=== PATIENT | female | born 1940 | race Caucasian/White ===

== ENCOUNTER 2019-06-28 07:31 | Day surgery (SDC) | payer MEDICARE, BC ==
[2019-06-28] MEDS ORDERED: Sodium Chloride 0.9% 10 ML Syringe FLUSH PRN (08:00)
[2019-06-28 09:36] VITALS: BP 134/73; PULSE 82
--- NOTE | 2019-06-28 14:34 | OR ---
DATE OF PROCEDURE: 06/28/2019 SURGEON: Caren Scruggs MD POSTOPERATIVE CARE: Postoperative care will be provided mainly at the [address] [place] [address] [facility] in conjunction with [facility] / [facility]. PREOPERATIVE DIAGNOSIS: Cataract, left eye. POSTOPERATIVE DIAGNOSIS: Cataract, left eye. PROCEDURE: Phacoemulsification with intraocular lens placement, left eye. ANESTHESIA: Topical and intracameral. ESTIMATED BLOOD LOSS: Minimal. COMPLICATIONS: None. PATHOLOGY SPECIMENS: None. SURGICAL FINDINGS: None. INDICATION FOR PROCEDURE: The patient is a 79-year-old female with history of a visually significant cataract in the left eye, which interfered with activities of daily living. This consisted of a nuclear sclerosis cataract. Following careful discussion of the risks, benefits and alternatives to cataract extraction with intraocular lens placement including blindness and , the patient elected to proceed, and informed, written consent was obtained prior to the procedure. DESCRIPTION OF THE PROCEDURE: The patient was previously identified, and a amadeo placed above the left eye. All sources, including the patient, indicated that the left eye was the correct eye. The patient was subsequently taken to the operating room where standard monitors were applied. The patient was then prepped and draped in the usual sterile fashion for ophthalmic surgery. Attention was first directed at the 12 o'clock position where a paracentesis port was fashioned. Shugar solution followed by Viscoat was instilled into the eye. Attention was then directed to the 8:30 position where a triplanar incision was made in a near-clear manner using a keratome. A continuous capsulorrhexis was then made using a combination of the cystotome and Utrata forceps. Hydrodissection was achieved using a balanced salt solution, and the lens rotated nicely. Phacoemulsification was then done using a modified [id number] technique without complication. Phaco time was 8.20 CDE. The remaining cortex was removed using the irrigation/aspiration handpiece. Provisc was then instilled into the eye. A Technis lens, model [id number], at 22.0 diopters was then placed in the capsular bag using an Anton Ruiz injector. The remaining viscoelastic was removed using the irrigation/aspiration forceps. All wounds were then checked and found to be watertight. The lid speculum and drapes were removed. Maxitrol ointment was placed in the patient's left eye, and the eye was shielded. The patient tolerated the procedure well. The patient was instructed to follow up tomorrow. All needle and sponge counts were correct at the end of the procedure. Caren Scruggs MD /[id number]
== END 2019-06-28 09:43 | disposition home or self-care (01) ==
LOC: JP.SDS 07:31
PROVIDERS: ATTEND Ophthalmology
DX: E11.36 Type 2 diabetes mellitus with diabetic cataract (principal); H25.12 Age-related nuclear cataract, left eye; I10 Essential (primary) hypertension; E78.5 Hyperlipidemia, unspecified; E03.9 Hypothyroidism, unspecified; K21.9 Gastro-esophageal reflux disease without esophagitis; Z88.2 Allergy status to sulfonamides; Z86.718 Personal history of other venous thrombosis and embolism
CPT/HCPCS: 66984; V2632

== ENCOUNTER 2021-04-04 14:16 | Emergency (ER) | payer MEDICARE, BC ==
[2021-04-04] MEDS ORDERED: Ondansetron 4 MG Tab.DIS PO ONE (15:18)
--- NOTE | 2021-04-04 15:24 | EDM.PDOC ---
ED HPI GENERAL MEDICAL PROBLEM - General Chief Complaint: General Stated Complaint: UNSTEADY AND TIRED Time Seen by Provider: 04/04/21 15:05 Source of Information: Reports: Patient, Old Records, RN History Limitations: Reports: No Limitations - History of Present Illness INITIAL COMMENTS - FREE TEXT/NARRATIVE: 81 yo female presents with fatigue with exertion, mild nausea without vomiting, and slightly loose stools. No SOB. No fever. Sees Dr. Armenta and did see him for the above plus a chronic RUGGIERO. There was discussion about getting an outpatient head CT scan, but nothing else. Today Ema decided to go back to the clinic and when she arrived the clinic was closed so she came to the ER. Onset: Gradual Duration: Day(s):, Constant Location: Reports: Generalized Quality: Reports: Ache (mild, chronic RUGGIERO) Severity: Mild Improves with: Reports: None Worsens with: Reports: None Context: Reports: Other (See HPI) Associated Symptoms: Reports: Headaches, Malaise, Nausea/Vomiting (no vomiting), Other (fatigue with exertion more than usual). 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) Headache Pain Score (Numeric/FACES): 4 - Related Data Allergies Allergy/AdvReac Type Severity Reaction Status Date / Time Sulfa (Sulfonamide Allergy Rash Verified 07/09/19 12:41 Antibiotics) Home Meds: Home Meds Gabapentin 600 mg PO BID 06/23/15 [History] Levothyroxine [Sythroid] 112 mcg PO DAILY 06/23/15 [History] Losartan Potassium [Cozaar] 100 mg PO DAILY 06/23/15 [History] Simvastatin 20 mg PO BEDTIME 06/23/15 [History] Verapamil HCl [Verapamil ER] 240 mg PO DAILY 06/23/15 [History] glipiZIDE [Glipizide] 10 mg PO BID 06/23/15 [History] Acetaminophen [Tylenol Extra Strength] 500 - 1,000 mg PO Q4HR PRN 07/06/15 [History] Cyanocobalamin (Vitamin B-12) [Cyanocobalamin Injection] 1,000 mcg IJ .MONTHLY 07/25/15 [History] Multivitamin [Daily Yoly] 1 tab PO DAILY 07/25/15 [History] Citalopram [Citalopram HBr] 20 mg PO DAILY 06/25/19 [History] LORazepam [Ativan] 0.5 mg PO TID PRN 06/25/19 [History] atorvaSTATin [Lipitor] 10 mg PO BEDTIME 06/25/19 [History] cephALEXin [Cephalexin] 500 mg PO TID #14 tablet 04/04/21 [Rx] Past Medical History HEENT 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: Cataract, Epistaxis, Impaired Vision Cardiovascular 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: Blood Clots/VTE/DVT, Hypertension, Other (See Below) Other Cardiovascular History: rhuematic fever hx, murmer at times Respiratory 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: PE Gastrointestinal 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: GERD, Other (See Below) Other Gastrointestinal History: occasional diarrhea- once every 3 months, had colitis years ago Genitourinary 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: None 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, Musculoskeletal 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: Arthritis Neurological 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: Migraines Psychiatric 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: Anxiety Endocrine/Metabolic 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: Diabetes, Type II Hematologic 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: B12 Deficiency, Blood Transfusion(s) - Infectious Disease History Infectious Disease 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: Chicken Pox, Measles, Mumps - Past Surgical History HEENT Surgical 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: Tonsillectomy Cardiovascular Surgical 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: None Respiratory Surgical 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: Other (See Below) Other Respiratory Surgeries/Procedures: removal of blood clot GI Surgical 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: Appendectomy, Colonoscopy, EGD Female Surgical 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: Breast Biopsy, Hysterectomy Endocrine Surgical 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: None Neurological Surgical 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: Lumbar Spine Musculoskeletal Surgical 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: Other (See Below) Other Musculoskeletal Surgeries/Procedures:: back sugery July 2015, spacer put in Social & Family History - Tobacco Use Tobacco Use Status *Q: Never Tobacco User - Caffeine Use Caffeine Use: Reports: Coffee ED ROS GENERAL - Review of Systems Review Of Systems: See Below Constitutional: Reports: No Symptoms HEENT: Reports: No Symptoms Respiratory: Reports: No Symptoms Cardiovascular: Reports: No Symptoms GI/Abdominal: Reports: Nausea. Denies: Vomiting : Reports: No Symptoms Musculoskeletal: Reports: No Symptoms Skin: Reports: No Symptoms Neurological: Reports: Headache ED EXAM, GENERAL - Physical Exam Exam: See Below Exam Limited By: No Limitations General Appearance: Alert, WD/WN, No Apparent Distress Eye Exam: Bilateral Eye: Normal Inspection Ears: Normal External Exam, Normal Canal, Hearing Loss Ear Exam: Bilateral Ear: Auricle Normal, Canal Normal Nose: Normal Inspection, No Blood Throat/Mouth: Normal Inspection, Normal Lips, Normal Oropharynx, Normal Voice, No Airway Compromise Head: Atraumatic, Normocephalic Neck: Normal Inspection Respiratory/Chest: No Respiratory Distress, Lungs Clear, Normal Breath Sounds, No Accessory Muscle Use Cardiovascular: Regular Rate, Rhythm, No Edema GI/Abdominal: Normal Bowel Sounds, Soft, Non-Tender, No Distention Back Exam: No: CVA Tenderness (R), CVA Tenderness (L) Extremities: Normal Inspection, Normal Range of Motion, Non-Tender, No Pedal Edema Neurological: Alert, Oriented, CN II-XII Intact, Normal Cognition, No Motor/Sensory Deficits Psychiatric: Normal Affect, Normal Mood Skin Exam: Warm, Dry, Intact, Normal Color, No Rash Course - Vital Signs Last Recorded V/S: Last Vital Signs Temp 36.2 C 04/04/21 15:01 Pulse 91 04/04/21 16:09 Resp 13 04/04/21 16:09 BP 125/73 04/04/21 16:09 Pulse Ox 90 L 04/04/21 16:09 - Orders/Labs/Meds Orders: Active Orders 24 hr Category Date Time Status Abdomen 1V Flat [CR] Stat Exams 04/04/21 15:24 Ordered CULTURE URINE [RM] Stat Lab 04/04/21 16:31 Received Lactated Ringers [Ringers, Lactated] 1,000 ml Med 04/04/21 15:52 Active IV BOLUS Medication Orders Lactated Ringer's (Ringers, Lactated) 1,000 mls @ 1,000 mls/hr IV BOLUS ONE Stop: 04/04/21 16:51 Last Admin: 04/04/21 16:02 Dose: 1,000 mls/hr Documented by: DARCY Labs: Laboratory Tests 04/04/21 04/04/21 04/04/21 Range/Units 15:26 15:26 15:26 WBC 7.5 (4.5-11.0) K/uL RBC 4.44 (3.30-5.50) M/uL Hgb 13.7 (12.0-15.0) g/dL Hct 41.2 (36.0-48.0) % MCV 93 (80-98) fL MCH 31 (27-31) pg MCHC 33 (32-36) % Plt Count 290 (150-400) K/uL Sodium 139 L (140-148) mmol/L Potassium 4.8 (3.6-5.2) mmol/L Chloride 103 (100-108) mmol/L Carbon Dioxide 24 (21-32) mmol/L Anion Gap 16.8 H (5.0-14.0) mmol/L BUN 21 H (7-18) mg/dL Creatinine 1.1 H (0.6-1.0) mg/dL Est Cr Clr Drug Dosing 37.55 mL/min Estimated GFR (MDRD) 48 L (>60) Glucose 229 H (74-106) mg/dL Calcium 9.5 (8.5-10.1) mg/dL Troponin I < 0.017 (0.000-0.056) ng/mL TSH, Ultra Sensitive 1.501 (0.358-3.740) uIU/mL Urine Color (YELLOW) Urine Appearance (CLEAR) Urine pH (5.0-8.0) Ur Specific [place] (1.008-1.030) Urine Protein (NEGATIVE) mg/dL Urine Glucose (UA) (NEGATIVE) mg/dL Urine Ketones (NEGATIVE) mg/dL Urine Occult Blood (NEGATIVE) Urine Nitrite (NEGATIVE) Urine Bilirubin (NEGATIVE) Urine Urobilinogen (0.2-1.0) EU/dL Ur Leukocyte Esterase (NEGATIVE) Urine RBC (0-5) Urine WBC (0-5) Ur Epithelial Cells Amorphous Sediment Urine Bacteria Urine Mucus 04/04/21 Range/Units 16:00 WBC (4.5-11.0) K/uL RBC (3.30-5.50) M/uL Hgb (12.0-15.0) g/dL Hct (36.0-48.0) % MCV (80-98) fL MCH (27-31) pg MCHC (32-36) % Plt Count (150-400) K/uL Sodium (140-148) mmol/L Potassium (3.6-5.2) mmol/L Chloride (100-108) mmol/L Carbon Dioxide (21-32) mmol/L Anion Gap (5.0-14.0) mmol/L BUN (7-18) mg/dL Creatinine (0.6-1.0) mg/dL Est Cr Clr Drug Dosing mL/min Estimated GFR (MDRD) (>60) Glucose (74-106) mg/dL Calcium (8.5-10.1) mg/dL Troponin I (0.000-0.056) ng/mL TSH, Ultra Sensitive (0.358-3.740) uIU/mL Urine Color Yellow (YELLOW) Urine Appearance Cloudy A (CLEAR) Urine pH 5.0 (5.0-8.0) Ur Specific [place] >= 1.030 (1.008-1.030) Urine Protein Trace H (NEGATIVE) mg/dL Urine Glucose (UA) Negative (NEGATIVE) mg/dL Urine Ketones Negative (NEGATIVE) mg/dL Urine Occult Blood Negative (NEGATIVE) Urine Nitrite Positive H (NEGATIVE) Urine Bilirubin Negative (NEGATIVE) Urine Urobilinogen 0.2 (0.2-1.0) EU/dL Ur Leukocyte Esterase Small H (NEGATIVE) Urine RBC 0-5 (0-5) Urine WBC Packed H (0-5) Ur Epithelial Cells Rare Amorphous Sediment Not seen Urine Bacteria Many Urine Mucus Not seen Meds: Medications Generic Name Dose Route Start Last Admin Trade Name Freq PRN Reason Stop Dose Admin Lactated Ringer's 1,000 mls @ 1,000 mls/hr 04/04/21 15:52 04/04/21 16:02 Ringers, Lactated IV 04/04/21 16:51 1,000 mls/hr BOLUS ONE Administration Discontinued Medications Generic Name Dose Route Start Last Admin Trade Name Freq PRN Reason Stop Dose Admin Cephalexin 500 mg 04/04/21 16:29 Cephalexin 250 Mg Cap PO 04/04/21 16:30 ONETIME ONE Ondansetron HCl 4 mg 04/04/21 15:18 04/04/21 15:31 Ondansetron 4 Mg Tab.Dis PO 04/04/21 15:19 4 mg ONETIME ONE Administration - Radiology Interpretation Free Text/Narrative:: abdomen single view X-ray- Departure - Departure Time of Disposition: 17:00 Disposition: Home, Self-Care 01 Condition: Fair Clinical Impression: Mild dehydration, Cystitis - Discharge Information *PRESCRIPTION DRUG MONITORING PROGRAM REVIEWED*: No *COPY OF PRESCRIPTION DRUG MONITORING REPORT IN PATIENT [place]: No Prescriptions: cephALEXin [Cephalexin] 500 mg PO TID #14 tablet Referrals: Michael Armenta MD [Primary Care Provider] - Forms: ED Department Discharge Additional Instructions: Take cephalexin every 8 hrs as directed. Drink more fluids. F/U with Dr. Armenta in 3 days to review your urine culture results. Return as needed. Sepsis Event Note (ED) - Evaluation Sepsis Screening Result: No Definite Risk - Focused Exam Vital Signs: Vital Signs Temp Pulse Resp BP Pulse Ox 04/04/21 16:09 91 13 125/73 90 L 04/04/21 15:01 36.2 C 105 H 15 136/76 94 L - My Orders Last 24 Hours: My Active Orders 04/04/21 15:24 Abdomen 1V Flat [CR] Stat 04/04/21 15:52 Lactated Ringers [Ringers, Lactated] 1,000 ml IV BOLUS 04/04/21 16:31 CULTURE URINE [RM] Stat - Assessment/Plan Last 24 Hours: My Active Orders 04/04/21 15:24 Abdomen 1V Flat [CR] Stat 04/04/21 15:52 Lactated Ringers [Ringers, Lactated] 1,000 ml IV BOLUS 04/04/21 16:31 CULTURE URINE [RM] Stat
[2021-04-04] MEDS ORDERED: Lactated Ringers 1,000 ML IV ONE (15:52)
[2021-04-04] MEDS ORDERED: Cephalexin 250 MG Cap PO ONE (16:29)
[2021-04-04 16:54] VITALS: BP 136/73; PULSE 89
== END 2021-04-04 17:07 | disposition home or self-care (01) ==
LOC: JP.ED 14:16
DX: N30.90 Cystitis, unspecified without hematuria (principal); E86.0 Dehydration; I10 Essential (primary) hypertension; E11.9 Type 2 diabetes mellitus without complications; Z79.899 Other long term (current) drug therapy; Z88.2 Allergy status to sulfonamides
CPT/HCPCS: 36415; 80048; 81001; 84443; 84484; 85027; 87086; 87088; 87186; 99283; A9270; J7120

== ENCOUNTER 2021-04-09 09:16 | Emergency (ER) | payer MEDICARE, BC ==
--- NOTE | 2021-04-09 10:04 | EDM.PDOC ---
ED HPI GENERAL MEDICAL PROBLEM - General Chief Complaint: General Stated Complaint: unbalanced , fatigue Time Seen by Provider: 04/09/21 10:03 Source of Information: Reports: Patient History Limitations: Reports: No Limitations - History of Present Illness INITIAL COMMENTS - FREE TEXT/NARRATIVE: pt arrived with a history of feeling like she is going to pass out when she stands up. She had a ct svan of the head ordered by Dr Armenta which was neg. She has a low grade headache relievieved by tylenol. Onset: Gradual Duration: Day(s): Location: Reports: Generalized, Other (pt feels like she is going to pass out when she stands up) Associated Symptoms: Reports: Weakness, Other ( dizziness) Head Pain Score (Numeric/FACES): 8 - Related Data Allergies Allergy/AdvReac Type Severity Reaction Status Date / Time Sulfa (Sulfonamide Allergy Rash Verified 04/09/21 09:44 Antibiotics) Home Meds: Home Meds Levothyroxine [Sythroid] 112 mcg PO DAILY 06/23/15 [History] Losartan Potassium [Cozaar] 100 mg PO DAILY 06/23/15 [History] Verapamil HCl [Verapamil ER] 240 mg PO DAILY 06/23/15 [History] glipiZIDE [Glipizide] 10 mg PO BID 06/23/15 [History] Acetaminophen [Tylenol Extra Strength] 500 - 1,000 mg PO Q4HR PRN 07/06/15 [History] Cyanocobalamin (Vitamin B-12) [Cyanocobalamin Injection] 1,000 mcg IJ .MONTHLY 07/25/15 [History] Multivitamin [Daily Yoly] 1 tab PO DAILY 07/25/15 [History] LORazepam [Ativan] 0.5 mg PO TID PRN 06/25/19 [History] atorvaSTATin [Lipitor] 10 mg PO BEDTIME 06/25/19 [History] Past Medical History HEENT 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: Cataract, Epistaxis, Impaired Vision Cardiovascular 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: Blood Clots/VTE/DVT, Hypertension, Other (See Below) Other Cardiovascular History: rhuematic fever hx, murmer at times Respiratory 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: PE Gastrointestinal 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: GERD, Other (See Below) Other Gastrointestinal History: occasional diarrhea- once every 3 months, had colitis years ago Genitourinary 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: None 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, Musculoskeletal 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: Arthritis Neurological 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: Migraines Psychiatric 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: Anxiety Endocrine/Metabolic 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: Diabetes, Type II Hematologic 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: B12 Deficiency, Blood Transfusion(s) - Infectious Disease History Infectious Disease 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: Chicken Pox, Measles, Mumps - Past Surgical History HEENT Surgical 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: Tonsillectomy Cardiovascular Surgical 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: None Respiratory Surgical 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: Other (See Below) Other Respiratory Surgeries/Procedures: removal of blood clot GI Surgical 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: Appendectomy, Colonoscopy, EGD Female Surgical 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: Breast Biopsy, Hysterectomy Endocrine Surgical 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: None Neurological Surgical 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: Lumbar Spine Musculoskeletal Surgical 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: Other (See Below) Other Musculoskeletal Surgeries/Procedures:: back sugery July 2015, spacer put in Social & Family History - Tobacco Use Tobacco Use Status *Q: Never Tobacco User Second Hand Smoke Exposure: No - Caffeine Use Caffeine Use: Reports: None - Recreational Drug Use Recreational Drug Use: No ED ROS GENERAL - Review of Systems Review Of Systems: See Below Constitutional: Reports: Weakness HEENT: Reports: No Symptoms Respiratory: Reports: No Symptoms Cardiovascular: Reports: Other (pt feels like her heart races at times. ) Endocrine: Reports: No Symptoms GI/Abdominal: Reports: No Symptoms : Reports: No Symptoms Musculoskeletal: Reports: No Symptoms Skin: Reports: No Symptoms ED EXAM, GENERAL - Physical Exam Exam: See Below Free Text/Narrative:: pt gfeels like she is going to pass out when she stands up. Her heart does race at times. She has not had chest pain. Exam Limited By: No Limitations General Appearance: Alert, Anxious, Mild Distress, Other (pupils are equal and reactive. ) Ears: Normal TMs Nose: Normal Inspection Throat/Mouth: Normal Inspection Head: Atraumatic Neck: Normal Inspection Respiratory/Chest: No Respiratory Distress Cardiovascular: Regular Rate, Rhythm, Tachycardia, Other (pt has a rate that is 90) GI/Abdominal: Soft, No Mass (Female) Exam: Deferred Rectal (Female) Exam: Deferred Back Exam: Normal Inspection Extremities: Normal Inspection Neurological: Alert, Oriented, Normal Cognition Psychiatric: Anxious #1 Interpretation Rhythm: NSR EKG Interpretation Comments: pt was tachy in the 90s she has poor r progression anteriorly Course - Vital Signs Last Recorded V/S: Last Vital Signs Temp 36.6 C 04/09/21 09:56 Pulse 95 04/09/21 12:48 Resp 16 04/09/21 12:48 BP 149/80 H 04/09/21 12:48 Pulse Ox 94 L 04/09/21 12:48 Orthostatic Blood Pressure [ 90/53 Standing] Orthostatic Blood Pressure [ 115/68 Sitting] Orthostatic Blood Pressure [ 131/70 Supine] - Orders/Labs/Meds Orders: Active Orders 24 hr Category Date Time Status EKG Documentation Completion [RC] ASDIRECTED Care 04/09/21 10:54 Active Orthostatic Vital Signs [RC] ASDIRECTED Care 04/09/21 10:38 Active Sodium Chloride 0.9% [Normal Saline] 1,000 ml Med 04/09/21 11:00 Active IV ASDIRECTED EKG 12 Lead [EK] Routine Ther 04/09/21 10:54 Ordered Medication Orders Sodium Chloride (Normal Saline) 1,000 mls @ 999 mls/hr IV ASDIRECTED TOD Last Admin: 04/09/21 12:17 Dose: 999 mls/hr Documented by: KASSI Labs: Laboratory Tests 04/09/21 04/09/21 04/09/21 Range/Units 10:25 10:25 10:33 WBC 6.6 (4.5-11.0) K/uL RBC 4.49 (3.30-5.50) M/uL Hgb 13.5 (12.0-15.0) g/dL Hct 41.3 (36.0-48.0) % MCV 92 (80-98) fL MCH 30 (27-31) pg MCHC 33 (32-36) % Plt Count 285 (150-400) K/uL Neut % (Auto) 60.9 (36-66) % Lymph % (Auto) 25.0 (24-44) % [place] % (Auto) 10.1 H (2-6) % Eos % (Auto) 3.5 (2-4) % Baso % (Auto) 0.5 (0-1) % Sodium 136 L (140-148) mmol/L Potassium 4.7 (3.6-5.2) mmol/L Chloride 101 (100-108) mmol/L Carbon Dioxide 25 (21-32) mmol/L Anion Gap 14.7 H (5.0-14.0) mmol/L BUN 21 H (7-18) mg/dL Creatinine 1.2 H (0.6-1.0) mg/dL Est Cr Clr Drug Dosing 34.42 mL/min Estimated GFR (MDRD) 43 L (>60) Glucose 271 H (74-106) mg/dL Calcium 8.8 (8.5-10.1) mg/dL Total Bilirubin 0.5 (0.2-1.0) mg/dL AST 21 (15-37) U/L ALT 28 (12-78) U/L Alkaline Phosphatase 41 L (46-116) U/L Troponin I (0.000-0.056) ng/mL Total Protein 7.1 (6.4-8.2) g/dL Albumin 3.4 (3.4-5.0) g/dL Globulin 3.7 H (2.3-3.5) g/dL Albumin/Globulin Ratio 0.9 L (1.2-2.2) Urine Color Yellow (YELLOW) Urine Appearance Cloudy A (CLEAR) Urine pH 5.0 (5.0-8.0) Ur Specific [place] 1.020 (1.008-1.030) Urine Protein Trace H (NEGATIVE) mg/dL Urine Glucose (UA) Negative (NEGATIVE) mg/dL Urine Ketones Negative (NEGATIVE) mg/dL Urine Occult Blood Negative (NEGATIVE) Urine Nitrite Negative (NEGATIVE) Urine Bilirubin Negative (NEGATIVE) Urine Urobilinogen 0.2 (0.2-1.0) EU/dL Ur Leukocyte Esterase Negative (NEGATIVE) Urine RBC Not seen (0-5) Urine WBC 0-5 (0-5) Ur Epithelial Cells Moderate Amorphous Sediment Not seen Urine Bacteria Few Urine Mucus Few Urine Other 04/09/21 Range/Units 11:10 WBC (4.5-11.0) K/uL RBC (3.30-5.50) M/uL Hgb (12.0-15.0) g/dL Hct (36.0-48.0) % MCV (80-98) fL MCH (27-31) pg MCHC (32-36) % Plt Count (150-400) K/uL Neut % (Auto) (36-66) % Lymph % (Auto) (24-44) % [place] % (Auto) (2-6) % Eos % (Auto) (2-4) % Baso % (Auto) (0-1) % Sodium (140-148) mmol/L Potassium (3.6-5.2) mmol/L Chloride (100-108) mmol/L Carbon Dioxide (21-32) mmol/L Anion Gap (5.0-14.0) mmol/L BUN (7-18) mg/dL Creatinine (0.6-1.0) mg/dL Est Cr Clr Drug Dosing mL/min Estimated GFR (MDRD) (>60) Glucose (74-106) mg/dL Calcium (8.5-10.1) mg/dL Total Bilirubin (0.2-1.0) mg/dL AST (15-37) U/L ALT (12-78) U/L Alkaline Phosphatase (46-116) U/L Troponin I < 0.017 (0.000-0.056) ng/mL Total Protein (6.4-8.2) g/dL Albumin (3.4-5.0) g/dL Globulin (2.3-3.5) g/dL Albumin/Globulin Ratio (1.2-2.2) Urine Color (YELLOW) Urine Appearance (CLEAR) Urine pH (5.0-8.0) Ur Specific [place] (1.008-1.030) Urine Protein (NEGATIVE) mg/dL Urine Glucose (UA) (NEGATIVE) mg/dL Urine Ketones (NEGATIVE) mg/dL Urine Occult Blood (NEGATIVE) Urine Nitrite (NEGATIVE) Urine Bilirubin (NEGATIVE) Urine Urobilinogen (0.2-1.0) EU/dL Ur Leukocyte Esterase (NEGATIVE) Urine RBC (0-5) Urine WBC (0-5) Ur Epithelial Cells Amorphous Sediment Urine Bacteria Urine Mucus Urine Other Meds: Medications Generic Name Dose Route Start Last Admin Trade Name Freq PRN Reason Stop Dose Admin Sodium Chloride 1,000 mls @ 999 mls/hr 04/09/21 11:00 04/09/21 12:17 Normal Saline IV 999 mls/hr ASDIRECTED [facility] Administration - Re-Assessments/Exams Free Text/Narrative Re-Assessment/Exam: 04/09/21 12:58 orthostatics were done on the pt and she had a very sig drop in bp to 90 systolic. She did feel off balance. Her urine was rechecked and it did look clear. Pt was given fluid and her verapamil will be decreased. Her lab work looked good. She was mildly tachy in a sinus rhythm she did have a normal trop 04/09/21 13:01 Departure - Departure Time of Disposition: 12:48 Disposition: Home, Self-Care 01 Condition: Fair Clinical Impression: Dehydration, Postural hypotension - Discharge Information Instructions: Dehydration, Adult, [id number] Referrals: PCP,None [Primary Care Provider] - Forms: ED Department Discharge Care Plan Goals: push fluids, decrease verapamil to 1/tab daily, appt with Dr armenta in 3-4 day, Sepsis Event Note (ED) - Evaluation Sepsis Screening Result: No Definite Risk - Focused Exam Vital Signs: Vital Signs Temp Pulse Resp BP Pulse Ox 04/09/21 12:48 95 16 149/80 H 94 L 04/09/21 11:38 95 15 131/75 91 L 04/09/21 10:40 93 16 133/71 94 L 04/09/21 09:56 36.6 C 92 16 132/74 92 L 04/09/21 09:36 36.6 C 99 16 142/72 H 90 L - My Orders Last 24 Hours: My Active Orders 04/09/21 10:38 Orthostatic Vital Signs [RC] ASDIRECTED 04/09/21 10:54 EKG Documentation Completion [RC] ASDIRECTED EKG 12 Lead [EK] Routine 04/09/21 11:00 Sodium Chloride 0.9% [Normal Saline] 1,000 ml IV ASDIRECTED - Assessment/Plan Last 24 Hours: My Active Orders 04/09/21 10:38 Orthostatic Vital Signs [RC] ASDIRECTED 04/09/21 10:54 EKG Documentation Completion [RC] ASDIRECTED EKG 12 Lead [EK] Routine 04/09/21 11:00 Sodium Chloride 0.9% [Normal Saline] 1,000 ml IV ASDIRECTED
[2021-04-09] MEDS ORDERED: Sodium Chloride 0.9% 1,000 ML IV SCH (11:00)
[2021-04-09 12:13] VITALS: PULSE 95
[2021-04-09 12:49] VITALS: BP 149/80
== END 2021-04-09 13:16 | disposition home or self-care (01) ==
LOC: JP.ED 09:16
DX: I95.9 Hypotension, unspecified (principal); E86.0 Dehydration; I10 Essential (primary) hypertension; E11.9 Type 2 diabetes mellitus without complications; Z79.899 Other long term (current) drug therapy; Z88.2 Allergy status to sulfonamides; R51.9 Headache, unspecified; G89.29 Other chronic pain; G31.9 Degenerative disease of nervous system, unspecified
CPT/HCPCS: 36415; 70470; 80053; 81001; 84484; 85025; 93005; 99285; J7030; Q9967

== ENCOUNTER 2021-07-12 08:24 | Emergency (ER) | payer MEDICARE, BC ==
[2021-07-12] MEDS ORDERED: Adenosine 6 MG/2 ML SDV IVPUSH ONE ×2 (08:37→08:46)
[2021-07-12] MEDS ORDERED: Verapamil 5 MG/2 ML SDV IVPUSH ONE (08:53)
--- NOTE | 2021-07-12 09:03 | EDM.PDOC ---
ED HPI GENERAL MEDICAL PROBLEM - General Chief Complaint: Chest Pain Stated Complaint: CHEST PAINS Time Seen by Provider: 07/12/21 08:30 Source of Information: Reports: Patient History Limitations: Reports: No Limitations - History of Present Illness INITIAL COMMENTS - FREE TEXT/NARRATIVE: 81-year-old female with a history of reflux and hypertension, presents with chest pressure that woke her up at 1 AM last night. She was having more heartburn than usual but had no shortness of breath or radiation of pain. The pressure however and palpitations have been present since 1 AM and she is unable to sleep. She came in this morning when it was persistent. It is somewhat worse with activity. No nausea or vomiting, fever, peripheral edema or abdominal pain. Onset: Unknown/Unsure (Woke her up at 1 AM, unsure when it started) Location: Reports: Chest (Pressure sensation) Associated Symptoms: Reports: Chest Pain, Malaise, Shortness of Breath (Mild shortness of breath especially with activity) Left Chest Pain Score (Numeric/FACES): 8 - Related Data Allergies Allergy/AdvReac Type Severity Reaction Status Date / Time Sulfa (Sulfonamide Allergy Rash Verified 07/12/21 08:46 Antibiotics) Home Meds: Home Meds Levothyroxine [Sythroid] 112 mcg PO DAILY 06/23/15 [History] Losartan Potassium [Cozaar] 100 mg PO DAILY 06/23/15 [History] Verapamil HCl [Verapamil ER] 240 mg PO DAILY 06/23/15 [History] glipiZIDE [Glipizide] 10 mg PO BID 06/23/15 [History] Acetaminophen [Tylenol Extra Strength] 500 - 1,000 mg PO Q4HR PRN 07/06/15 [History] Cyanocobalamin (Vitamin B-12) [Cyanocobalamin Injection] 1,000 mcg IJ .MONTHLY 07/25/15 [History] Multivitamin [Daily Yoly] 1 tab PO DAILY 07/25/15 [History] LORazepam [Ativan] 0.5 mg PO TID PRN 06/25/19 [History] atorvaSTATin [Lipitor] 10 mg PO BEDTIME 06/25/19 [History] Empagliflozin [Jardiance] 10 mg PO DAILY 07/12/21 [History] Past Medical History HEENT 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: Cataract, Epistaxis, Impaired Vision Cardiovascular 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: Blood Clots/VTE/DVT, Hypertension, Other (See Below) Other Cardiovascular History: rhuematic fever hx, murmer at times Respiratory 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: PE Gastrointestinal 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: GERD, Other (See Below) Other Gastrointestinal History: occasional diarrhea- once every 3 months, had colitis years ago Genitourinary 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: None 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, Musculoskeletal 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: Arthritis Neurological 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: Migraines Psychiatric 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: Anxiety Endocrine/Metabolic 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: Diabetes, Type II Hematologic 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: B12 Deficiency, Blood Transfusion(s) - Infectious Disease History Infectious Disease 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: Chicken Pox, Measles, Mumps - Past Surgical History HEENT Surgical 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: Tonsillectomy Cardiovascular Surgical 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: None Respiratory Surgical 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: Other (See Below) Other Respiratory Surgeries/Procedures: removal of blood clot GI Surgical 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: Appendectomy, Colonoscopy, EGD Female Surgical 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: Breast Biopsy, Hysterectomy Endocrine Surgical 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: None Neurological Surgical 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: Lumbar Spine Musculoskeletal Surgical 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: Other (See Below) Other Musculoskeletal Surgeries/Procedures:: back sugery July 2015, spacer put in Social & Family History - Caffeine Use Caffeine Use: Reports: None ED ROS GENERAL - Review of Systems Review Of Systems: See Below Constitutional: Denies: Fever, Chills HEENT: Denies: Throat Pain Respiratory: Reports: Shortness of Breath Cardiovascular: Reports: Chest Pain, Dyspnea on Exertion GI/Abdominal: Reports: Other (Chronic recurring heartburn, last night more than baseline) : Reports: No Symptoms Neurological: Reports: No Symptoms Psychiatric: Reports: No Symptoms ED EXAM, GENERAL - Physical Exam Exam: See Below Exam Limited By: No Limitations General Appearance: Alert, No Apparent Distress Eye Exam: Bilateral Eye: Normal Inspection Head: Atraumatic Respiratory/Chest: No Respiratory Distress, Lungs Clear Cardiovascular: Regular Rate, Rhythm, Tachycardia GI/Abdominal: Soft, Non-Tender Extremities: No: Pedal Edema Neurological: Alert, Oriented Psychiatric: Normal Affect, Normal Mood Skin Exam: Warm, Dry #1 Interpretation EKG Date: 07/12/21 EKG Interpretation Comments: Initial EKG shows a regular narrow complex tachycardia with a rate of 167, possible SVT versus atrial flutter with 2-1 capture Course - Vital Signs Last Recorded V/S: Last Vital Signs Temp 97.1 F 07/12/21 09:05 Pulse 134 H 07/12/21 09:05 Resp 16 07/12/21 09:05 BP 101/76 07/12/21 09:05 Pulse Ox 95 07/12/21 09:05 - Orders/Labs/Meds Orders: Active Orders 24 hr Category Date Time Status EKG 12 Lead [EK] Routine Ther 07/12/21 08:46 Ordered Labs: Laboratory Tests 07/12/21 07/12/21 Range/Units 08:40 08:46 WBC 10.4 (4.5-11.0) K/uL RBC 4.91 (3.30-5.50) M/uL Hgb 15.1 H (12.0-15.0) g/dL Hct 45.8 (36.0-48.0) % MCV 93 (80-98) fL MCH 31 (27-31) pg MCHC 33 (32-36) % Plt Count 327 (150-400) K/uL Neut % (Auto) 62.0 (36-66) % Lymph % (Auto) 27.2 (24-44) % [place] % (Auto) 9.2 H (2-6) % Eos % (Auto) 1.1 L (2-4) % Baso % (Auto) 0.5 (0-1) % Sodium 136 L (140-148) mmol/L Potassium 4.5 (3.6-5.2) mmol/L Chloride 99 L (100-108) mmol/L Carbon Dioxide 20 L (21-32) mmol/L Anion Gap 21.5 H (5.0-14.0) mmol/L BUN 16 (7-18) mg/dL Creatinine 1.3 H (0.6-1.0) mg/dL Est Cr Clr Drug Dosing 31.77 mL/min Estimated GFR (MDRD) 39 L (>60) Glucose 347 H (74-106) mg/dL Calcium 9.3 (8.5-10.1) mg/dL Troponin I 0.099 H* (0.000-0.056) ng/mL Meds: Medications Discontinued Medications Generic Name Dose Route Start Last Admin Trade Name Freq PRN Reason Stop Dose Admin Adenosine 6 mg 07/12/21 08:37 07/12/21 08:43 Adenosine 6 Mg/2 Ml Sdv IVPUSH 07/12/21 08:38 6 mg NOW ONE Administration Adenosine 12 mg 07/12/21 08:46 07/12/21 08:53 Adenosine 6 Mg/2 Ml Sdv IVPUSH 07/12/21 08:47 12 mg NOW ONE Administration Sodium Chloride 1,000 mls @ 999 mls/hr 07/12/21 09:16 07/12/21 09:17 Normal Saline IV 07/12/21 10:16 999 mls/hr .BOLUS ONE Administration Verapamil HCl 5 mg 07/12/21 08:53 Verapamil 5 Mg/2 Ml Sdv IVPUSH 07/12/21 08:54 ONETIME ONE - Re-Assessments/Exams Free Text/Narrative Re-Assessment/Exam: 07/12/21 09:01 EKG was done which showed narrow complex tachycardia. Blood was drawn for CBC, CMP and troponin. While on cardiac monitoring, patient was given 6 mg of Adenocard which slowed her rate slightly but did not change rhythm. 12 mg was then given and this did convert the patient to a sinus bradycardia with occasional PVCs temporarily, then she went right back into her tachyarrhythmia. Few minutes later however she appeared to go into more of a sinus tachycardia. EKG was done which confirmed sinus tachycardia. She'll be continued to be monitored while labs are pending 07/12/21 09:19 Troponin returned 0.09, likely cardiac strain from being in tachycardia since 1 AM. An angiogram 5 years ago was negative. She remained in sinus tachycardia so full liter of normal saline was given. 07/12/21 09:32 After 400 cc of normal saline, her rate slowed to near normal, her O2 saturations remained 95% or better and her symptoms resolved. She will be discharged and if symptoms recur she should return quickly rather than wait as this can strain her heart. She agreed, no new medications. Departure - Departure Time of Disposition: 10:08 Disposition: Home, Self-Care 01 Clinical Impression: Supraventricular tachycardia, Moderate dehydration - Discharge Information Instructions: Supraventricular Tachycardia, Adult Referrals: Michael Armenta MD [Primary Care Provider] - Forms: ED Department Discharge Care Plan Goals: Continue your current medications, stay hydrated, increase activity as tolerated and return anytime if symptoms recur or you develop other concerns. Sepsis Event Note (ED) - Focused Exam Vital Signs: Vital Signs Temp Pulse Resp BP Pulse Ox 07/12/21 09:05 97.1 F 134 H 16 101/76 95 - My Orders Last 24 Hours: My Active Orders 07/12/21 08:46 EKG 12 Lead [EK] Routine - Assessment/Plan Last 24 Hours: My Active Orders 07/12/21 08:46 EKG 12 Lead [EK] Routine
[2021-07-12 09:07] VITALS: BP 101/76; PULSE 134
[2021-07-12] MEDS: Sodium Chloride 0.9% 1,000 ML IV ONE ×2 (09:17)
== END 2021-07-12 10:09 | disposition home or self-care (01) ==
LOC: JP.ED 08:24
DX: I47.1 Supraventricular tachycardia (principal); E86.0 Dehydration; I10 Essential (primary) hypertension; E11.9 Type 2 diabetes mellitus without complications; Z88.2 Allergy status to sulfonamides; Z79.899 Other long term (current) drug therapy; Z90.49 Acquired absence of other specified parts of digestive tract; Z90.710 Acquired absence of both cervix and uterus
CPT/HCPCS: 36415; 80048; 84484; 85025; 93005; 96374; 99285; J0153; J7030

== ENCOUNTER 2021-09-02 07:21 | Emergency (ER) | payer MEDICARE, BC ==
[2021-09-02 07:46] VITALS: BP 142/84; PULSE 113
--- NOTE | 2021-09-02 07:52 | EDM.PDOC ---
ED HPI GENERAL MEDICAL PROBLEM - General Chief Complaint: Skin Complaint Stated Complaint: ITCHING ALL OVER Time Seen by Provider: 09/02/21 07:42 Source of Information: Reports: Patient, RN Notes Reviewed History Limitations: Reports: No Limitations - History of Present Illness INITIAL COMMENTS - FREE TEXT/NARRATIVE: 81-year-old female presents emergency department day complaint of an itchy rash, she was evaluated by her primary care 2 days prior recommend she start Claritin unfortunately since this medication has not helped her her biggest complaint is she is so itchy she has been able to get a good night sleep. She denies any new medications no new food products nothing that would explain this rash it is predominantly on her trunk. She denies any nausea vomiting shortness of breath or chest pain - Related Data Allergies Allergy/AdvReac Type Severity Reaction Status Date / Time Sulfa (Sulfonamide Allergy Rash Verified 09/02/21 07:36 Antibiotics) Home Meds: Home Meds Levothyroxine [Sythroid] 112 mcg PO DAILY 06/23/15 [History] Losartan Potassium [Cozaar] 100 mg PO DAILY 06/23/15 [History] Verapamil HCl [Verapamil ER] 240 mg PO DAILY 06/23/15 [History] glipiZIDE [Glipizide] 10 mg PO BID 06/23/15 [History] Acetaminophen [Tylenol Extra Strength] 500 - 1,000 mg PO Q4HR PRN 07/06/15 [History] Cyanocobalamin (Vitamin B-12) [Cyanocobalamin Injection] 1,000 mcg IJ .MONTHLY 07/25/15 [History] Multivitamin [Daily Yoly] 1 tab PO DAILY 07/25/15 [History] LORazepam [Ativan] 0.5 mg PO TID PRN 06/25/19 [History] atorvaSTATin [Lipitor] 10 mg PO BEDTIME 06/25/19 [History] Empagliflozin [Jardiance] 10 mg PO DAILY 07/12/21 [History] predniSONE [Prednisone] 20 mg PO DAILY #5 tablet 09/02/21 [Rx] Past Medical History HEENT 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: Cataract, Epistaxis, Impaired Vision Cardiovascular 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: Blood Clots/VTE/DVT, High Cholesterol, Hypertension, Other (See Below) Other Cardiovascular History: rhuematic fever hx, murmer at times Respiratory 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: PE Gastrointestinal 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: GERD, Other (See Below) Other Gastrointestinal History: occasional diarrhea- once every 3 months, had c olitis years ago 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, Musculoskeletal 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: Arthritis Neurological 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: Migraines Psychiatric 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: Anxiety Endocrine/Metabolic 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: Diabetes, Type II Hematologic 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: B12 Deficiency, Blood Transfusion(s) - Infectious Disease History Infectious Disease 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: Chicken Pox, Measles, Mumps - Past Surgical History HEENT Surgical 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: Tonsillectomy Cardiovascular Surgical 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: None Respiratory Surgical 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: Other (See Below) Other Respiratory Surgeries/Procedures: removal of blood clot GI Surgical 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: Appendectomy, Colonoscopy, EGD Female Surgical 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: Breast Biopsy, Hysterectomy Endocrine Surgical 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: None Neurological Surgical 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: Lumbar Spine Musculoskeletal Surgical 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: Other (See Below) Other Musculoskeletal Surgeries/Procedures:: back sugery July 2015, spacer put in Social & Family History - Tobacco Use Tobacco Use Status *Q: Never Tobacco User - Caffeine Use Caffeine Use: Reports: None - Recreational Drug Use Recreational Drug Use: No ED ROS GENERAL - Review of Systems Review Of Systems: See Below Constitutional: Reports: No Symptoms Respiratory: Reports: No Symptoms Cardiovascular: Reports: No Symptoms GI/Abdominal: Reports: No Symptoms Skin: Reports: Pruritis, Rash ED EXAM, SKIN/RASH Exam: See Below Text/Narrative:: Examination of the rash there is a maculopapular rash predominantly on the trunk it is not warm to the touch it is smooth Exam Limited By: No Limitations General Appearance: Alert, WD/WN, No Apparent Distress Respiratory/Chest: No Respiratory Distress, Lungs Clear, Normal Breath Sounds, No Accessory Muscle Use, Chest Non-Tender Cardiovascular: Regular Rate, Rhythm, No Murmur Course - Vital Signs Last Recorded V/S: Last Vital Signs Temp 97.2 F 09/02/21 07:45 Pulse 113 H 09/02/21 07:45 Resp 16 09/02/21 07:45 BP 142/84 H 09/02/21 07:45 Pulse Ox 95 09/02/21 07:45 Departure - Departure Time of Disposition: 07:50 Disposition: Home, Self-Care 01 Condition: Fair Clinical Impression: Atopic dermatitis Qualifiers: Atopic dermatitis type: unspecified Qualified Code(s): L20.9 - Atopic dermatitis, unspecified - Discharge Information Prescriptions: predniSONE [Prednisone] 20 mg PO DAILY #5 tablet Instructions: Atopic Dermatitis Referrals: Michael Armenta MD [Primary Care Provider] - Additional Instructions: Take full course of prednisone, continue to use Benadryl at night for symptomatic relief, please followup with your primary care provider in 3-5 days if not better, please call return to the emergency department with worsening of symptoms. Sepsis Event Note (ED) - Focused Exam Vital Signs: Vital Signs Temp Pulse Resp BP Pulse Ox 09/02/21 07:45 97.2 F 113 H 16 142/84 H 95 - Assessment/Plan Plan: Assessment Acuity = acute Site and laterality = atopic dermatitis Etiology = unknown Manifestations = none Location of injury = Home Lab values = none Plan Elected to do an empiric trial of prednisone 20 mg once a day for 5 days she will use Benadryl at night to help with sleep follow-up primary care in 3 to 5 days if no improvement This note was dictated using [employer] voice recognition software please call with any questions on syntax or grammar.
== END 2021-09-02 08:03 | disposition home or self-care (01) ==
LOC: JP.ED 07:21
DX: L20.9 Atopic dermatitis, unspecified (principal); E78.00 Pure hypercholesterolemia, unspecified; I10 Essential (primary) hypertension; M19.90 Unspecified osteoarthritis, unspecified site; E11.9 Type 2 diabetes mellitus without complications; Z88.2 Allergy status to sulfonamides; Z79.84 Long term (current) use of oral hypoglycemic drugs; Z79.899 Other long term (current) drug therapy
CPT/HCPCS: 99282

== ENCOUNTER 2021-09-12 12:42 | Emergency (ER) | payer MEDICARE, BC ==
[2021-09-12 13:16] VITALS: BP 138/69; PULSE 104
[2021-09-12] MEDS ORDERED: Sodium Chloride 0.9% 500 ML IV SCH (13:45)
--- NOTE | 2021-09-12 14:54 | EDM.PDOC ---
ED HPI GENERAL MEDICAL PROBLEM - General Chief Complaint: Medication Administration Stated Complaint: WEAKNESS Time Seen by Provider: 09/12/21 13:15 Source of Information: Reports: Patient History Limitations: Reports: No Limitations - History of Present Illness INITIAL COMMENTS - FREE TEXT/NARRATIVE: 81-year-old female who feels tired and weak today more so than usual. She took hydroxyzine for chronic itching, and just does not feel she has any energy today. No fevers or chills, no nausea or vomiting, no shortness of breath. She claims she did not take any extra medications or change her medications from her previous doses. She arrives with normal vitals although she did have a slight drop of blood pressure when standing compared to laying down. Pulse was stable. She had no other specific symptoms, denied a headache, visual complaints, recent falls or diarrhea. Onset: Unknown/Unsure (Patient developed symptoms around 2 to 3 hours ago after taking her hydroxyzine) Associated Symptoms: Reports: Malaise, Weakness. Denies: Confusion, Chest Pain, Cough, Headaches, Shortness of Breath - Related Data Allergies Allergy/AdvReac Type Severity Reaction Status Date / Time Sulfa (Sulfonamide Allergy Rash Verified 09/02/21 07:36 Antibiotics) Home Meds: Home Meds Levothyroxine [Sythroid] 112 mcg PO DAILY 06/23/15 [History] Losartan Potassium [Cozaar] 100 mg PO DAILY 06/23/15 [History] Verapamil HCl [Verapamil ER] 240 mg PO DAILY 06/23/15 [History] glipiZIDE [Glipizide] 10 mg PO BID 06/23/15 [History] Acetaminophen [Tylenol Extra Strength] 500 - 1,000 mg PO Q4HR PRN 07/06/15 [History] Cyanocobalamin (Vitamin B-12) [Cyanocobalamin Injection] 1,000 mcg IJ .MONTHLY 07/25/15 [History] Multivitamin [Daily Yoly] 1 tab PO DAILY 07/25/15 [History] LORazepam [Ativan] 0.5 mg PO TID PRN 06/25/19 [History] atorvaSTATin [Lipitor] 10 mg PO BEDTIME 06/25/19 [History] Empagliflozin [Jardiance] 10 mg PO DAILY 07/12/21 [History] predniSONE [Prednisone] 20 mg PO DAILY #5 tablet 09/02/21 [Rx] Past Medical History HEENT 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: Cataract, Epistaxis, Impaired Vision Cardiovascular 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: Blood Clots/VTE/DVT, High Cholesterol, Hypertension, Other (See Below) Other Cardiovascular History: rhuematic fever hx, murmer at times Respiratory 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: PE Gastrointestinal 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: GERD, Other (See Below) Other Gastrointestinal History: occasional diarrhea- once every 3 months, had colitis years ago Genitourinary 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: None 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, Musculoskeletal 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: Arthritis Neurological 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: Migraines Psychiatric 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: Anxiety Endocrine/Metabolic 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: Diabetes, Type II Hematologic 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: B12 Deficiency, Blood Transfusion(s) - Infectious Disease History Infectious Disease 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: Chicken Pox, Measles, Mumps - Past Surgical History Head Surgeries/Procedures: Reports: None HEENT Surgical 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: Tonsillectomy Cardiovascular Surgical 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: None Respiratory Surgical 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: Other (See Below) Other Respiratory Surgeries/Procedures: removal of blood clot GI Surgical 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: Appendectomy, Colonoscopy, EGD Female Surgical 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: Breast Biopsy, Hysterectomy Endocrine Surgical 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: None Neurological Surgical 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: Lumbar Spine Musculoskeletal Surgical 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: Other (See Below) Other Musculoskeletal Surgeries/Procedures:: back sugery July 2015, spacer put in Social & Family History - Tobacco Use Tobacco Use Status *Q: Never Tobacco User Second Hand Smoke Exposure: No - Caffeine Use Caffeine Use: Reports: None ED ROS GENERAL - Review of Systems Review Of Systems: See Below Constitutional: Denies: Fever, Chills HEENT: Denies: Vision Change Respiratory: Reports: No Symptoms Cardiovascular: Denies: Chest Pain, Palpitations Endocrine: Reports: Fatigue GI/Abdominal: Reports: No Symptoms : Reports: No Symptoms Skin: Reports: Other (Chronic itching, scattered excoriations some well-healed scarring on her shoulders and arms) Neurological: Reports: Dizziness, Weakness ED EXAM, GENERAL - Physical Exam Exam: See Below Exam Limited By: No Limitations General Appearance: Alert, No Apparent Distress Eye Exam: Bilateral Eye: Normal Inspection Head: Atraumatic Neck: Supple, Non-Tender Respiratory/Chest: Lungs Clear Cardiovascular: Regular Rate, Rhythm, Tachycardia (Mild tachycardia) GI/Abdominal: Soft, Non-Tender Extremities: Normal Inspection Neurological: Alert, Oriented, No Motor/Sensory Deficits Psychiatric: Flat Affect Skin Exam: Warm, Dry, Other (Skin tears are actually does feel a little dry) Course - Vital Signs Last Recorded V/S: Last Vital Signs Temp 97.5 F 09/12/21 12:57 Pulse 104 H 09/12/21 13:15 Resp 16 09/12/21 13:15 BP 138/69 09/12/21 13:15 Pulse Ox 96 09/12/21 13:15 - Orders/Labs/Meds Labs: Laboratory Tests 09/12/21 09/12/21 Range/Units 13:53 13:53 WBC 6.1 (4.5-11.0) K/uL RBC 4.79 (3.30-5.50) M/uL Hgb 14.4 (12.0-15.0) g/dL Hct 43.2 (36.0-48.0) % MCV 90 (80-98) fL MCH 30 (27-31) pg MCHC 33 (32-36) % Plt Count 246 (150-400) K/uL Neut % (Auto) 51.6 (36-66) % Lymph % (Auto) 30.7 (24-44) % [place] % (Auto) 10.6 H (2-6) % Eos % (Auto) 6.1 H (2-4) % Baso % (Auto) 1.0 (0-1) % Sodium 135 L (140-148) mmol/L Potassium 3.7 (3.6-5.2) mmol/L Chloride 102 (100-108) mmol/L Carbon Dioxide 22 (21-32) mmol/L Anion Gap 14.7 H (5.0-14.0) mmol/L BUN 28 H D (7-18) mg/dL Creatinine 1.1 H (0.6-1.0) mg/dL Est Cr Clr Drug Dosing 37.55 mL/min Estimated GFR (MDRD) 48 L (>60) Glucose 221 H (74-106) mg/dL Calcium 9.5 (8.5-10.1) mg/dL Meds: Medications Discontinued Medications Generic Name Dose Route Start Last Admin Trade Name Freq PRN Reason Stop Dose Admin Sodium Chloride 500 mls @ 1,000 mls/hr 09/12/21 13:45 09/12/21 13:52 Normal Saline IV 1,000 mls/hr ASDIRECTED TOD Administration - Re-Assessments/Exams Free Text/Narrative Re-Assessment/Exam: 09/12/21 15:33 Patient was given 500 cc of normal saline, CBC and BMP were obtained. Lab results were reassuring, and after the 500 cc of saline patient felt back to baseline. Interestingly her daughter came in and talk to us that she was being discharged, and claims she has doubled her hydroxyzine lately despite the patient saying she had no changes in her medicines. This needs to be discussed with her primary provider. Departure - Departure Time of Disposition: 15:02 Disposition: Home, Self-Care 01 Clinical Impression: Weakness, Dizziness, Mild dehydration - Discharge Information Instructions: Dehydration, Elderly, [id number] Referrals: Michael Armenta MD [Primary Care Provider] - Forms: ED Department Discharge Care Plan Goals: Concentrate on getting plenty of fluids, continue any regular medications and increase activity as tolerated. Consider rechecking in 2 to 3 days if not improving satisfactorily, or return anytime if worsening or concerns. Sepsis Event Note (ED) - Focused Exam Vital Signs: Vital Signs Temp Pulse Resp BP Pulse Ox 09/12/21 13:15 104 H 16 138/69 96 09/12/21 12:59 113 H 90/61 09/12/21 12:57 97.5 F 114 H 14 106/58 L 96
== END 2021-09-12 15:02 | disposition home or self-care (01) ==
LOC: JP.ED 12:42
DX: E86.0 Dehydration (principal); E78.00 Pure hypercholesterolemia, unspecified; I10 Essential (primary) hypertension; E11.9 Type 2 diabetes mellitus without complications; Z86.711 Personal history of pulmonary embolism; Z88.2 Allergy status to sulfonamides; Z79.899 Other long term (current) drug therapy; Z79.84 Long term (current) use of oral hypoglycemic drugs; Z86.718 Personal history of other venous thrombosis and embolism
CPT/HCPCS: 36415; 80048; 85025; 99283; J7030

== ENCOUNTER 2021-09-17 06:31 | Emergency (ER) | payer MEDICARE, BC ==
[2021-09-17 06:45] VITALS: BP 134/65; PULSE 96
[2021-09-17] MEDS ORDERED: Ketorolac 30 MG/ML SDV IM ONE (07:46)
[2021-09-17] MEDS ORDERED: Acetaminophen/HYDROcodone 325-5 MG Tab PO ONE (07:47)
--- NOTE | 2021-09-17 07:51 | EDM.PDOC ---
ED HPI GENERAL MEDICAL PROBLEM - General Chief Complaint: Lower Extremity Injury/Pain Stated Complaint: BACK AND LEG PAIN Time Seen by Provider: 09/17/21 07:48 Source of Information: Reports: Patient History Limitations: Reports: No Limitations - History of Present Illness INITIAL COMMENTS - FREE TEXT/NARRATIVE: pt arrived with pain in the lower back radiating down the left leg. She has a past history of lumbar disc disease and she had surgery for that about 4-5 years ago. She has not fallen or injured herself. Onset: Other ( started spontaneously yesterday. ) Duration: Hour(s): Location: Reports: Back Associated Symptoms: Reports: Other ( She feels like the left leg is weaker. ) Bilateral Hip Pain Score (Numeric/FACES): 4 - Related Data Allergies Allergy/AdvReac Type Severity Reaction Status Date / Time Sulfa (Sulfonamide Allergy Rash Verified 09/17/21 06:46 Antibiotics) Home Meds: Home Meds Levothyroxine [Sythroid] 112 mcg PO DAILY 06/23/15 [History] Losartan Potassium [Cozaar] 100 mg PO DAILY 06/23/15 [History] Verapamil HCl [Verapamil ER] 240 mg PO DAILY 06/23/15 [History] glipiZIDE [Glipizide] 10 mg PO BID 06/23/15 [History] Acetaminophen [Tylenol Extra Strength] 500 - 1,000 mg PO Q4HR PRN 07/06/15 [History] Cyanocobalamin (Vitamin B-12) [Cyanocobalamin Injection] 1,000 mcg IJ .MONTHLY 07/25/15 [History] Multivitamin [Daily Yoly] 1 tab PO DAILY 07/25/15 [History] LORazepam [Ativan] 0.5 mg PO TID PRN 06/25/19 [History] atorvaSTATin [Lipitor] 10 mg PO BEDTIME 06/25/19 [History] Past Medical History HEENT 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: Cataract, Epistaxis, Impaired Vision Cardiovascular 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: Blood Clots/VTE/DVT, High Cholesterol, Hypertension, Other (See Below) Other Cardiovascular History: rhuematic fever hx, murmer at times Respiratory 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: PE Gastrointestinal 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: GERD, Other (See Below) Other Gastrointestinal History: occasional diarrhea- once every 3 months, had colitis years ago Genitourinary 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: None 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 GEOLOGIST 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: Dysfunctional Uterine Bleeding, Musculoskeletal 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: Arthritis Neurological 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: Migraines Psychiatric 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: Anxiety Endocrine/Metabolic 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: Diabetes, Type II Hematologic 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: B12 Deficiency, Blood Transfusion(s) - Infectious Disease History Infectious Disease 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: Chicken Pox, Measles, Mumps - Past Surgical History Head Surgeries/Procedures: Reports: None HEENT Surgical 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: Tonsillectomy Cardiovascular Surgical 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: None Respiratory Surgical 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: Other (See Below) Other Respiratory Surgeries/Procedures: removal of blood clot GI Surgical 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: Appendectomy, Colonoscopy, EGD Female Surgical 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: Breast Biopsy, Hysterectomy Endocrine Surgical 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: None Neurological Surgical 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: Lumbar Spine Musculoskeletal Surgical 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: Other (See Below) Other Musculoskeletal Surgeries/Procedures:: back sugery July 2015, spacer put in Social & Family History - Tobacco Use Tobacco Use Status *Q: Never Tobacco User Second Hand Smoke Exposure: No - Caffeine Use Caffeine Use: Reports: Soda Caffeine Use Comment: diet coke - Recreational Drug Use Recreational Drug Use: No Review of Systems - Review of Systems Review Of Systems: See Below Constitutional: Reports: No Symptoms Eyes: Reports: No Symptoms Ears: Reports: No Symptoms Nose: Reports: No Symptoms Mouth/Throat: Reports: No Symptoms Respiratory: Reports: No Symptoms Cardiovascular: Reports: No Symptoms GI/Abdominal: Reports: No Symptoms Genitourinary: Reports: No Symptoms Musculoskeletal: Reports: Other (pain in the lower back) Neurological: Reports: Weakness Psychiatric: Reports: No Symptoms ED EXAM, GENERAL - Physical Exam Exam: See Below Free Text/Narrative:: pt started having pain in her lower back radiating down the left leg yesterday. This was not brought on by a fall. She has a past history of lumbar disc disease. She did have surgery 4 or 5 years ago She has not had a fall. Exam Limited By: No Limitations General Appearance: Alert, Anxious, Moderate Distress Ears: Normal TMs Nose: Normal Inspection Throat/Mouth: Normal Inspection Head: Atraumatic Neck: Normal Inspection Respiratory/Chest: No Respiratory Distress GI/Abdominal: Soft, Non-Tender (Female) Exam: Deferred Rectal (Female) Exam: Deferred Back Exam: Other (pt is tender over the lower back. Shas a positive straight leg rasing sign. ) Extremities: Leg Pain Neurological: Alert, Oriented, Normal Cognition Psychiatric: Anxious Course - Vital Signs Last Recorded V/S: Last Vital Signs Temp 35.6 C L 09/17/21 06:44 Pulse 96 09/17/21 06:44 Resp 16 09/17/21 06:44 BP 134/65 09/17/21 06:44 Pulse Ox 96 09/17/21 06:44 - Orders/Labs/Meds Meds: Medications Discontinued Medications Generic Name Dose Route Start Last Admin Trade Name Primitivo PRN Reason Stop Dose Admin Hydrocodone Bitart/Acetaminophen 1 tab 09/17/21 07:47 09/17/21 07:59 Acetaminophen/Hydrocodone 325-5 Mg Tab PO 09/17/21 07:48 1 tab ONETIME ONE Administration Ketorolac Tromethamine 30 mg 09/17/21 07:46 09/17/21 08:01 Ketorolac 30 Mg/Ml Sdv IM 09/17/21 07:47 30 mg ONETIME ONE Administration - Re-Assessments/Exams Free Text/Narrative Re-Assessment/Exam: 09/17/21 08:38 pt had a lumbar spine series done which showed the surgical changes, She did have a possible vaccum sign 2 levels above her suergical areas. She did have good relief from the pain meds. Departure - Departure Time of Disposition: 09:50 Disposition: Home, Self-Care 01 Condition: Fair Clinical Impression: Lumbar disc disease with radiculopathy - Discharge Information Instructions: Degenerative Disk Disease Referrals: Michael Armenta MD [Primary Care Provider] - Forms: ED Department Discharge Care Plan Goals: low activity, no lifting, cool packs or warm packs to lower back, follow up with regular DR in 5-6 days, Pt may need an MRI if pain is persistent. flexeril 10mg at bedtime norco 5/325 q6h prn for discomfort. Sepsis Event Note (ED) - Evaluation Sepsis Screening Result: No Definite Risk
--- NOTE | 2021-09-17 09:19 | CR ---
Lumbar Spine 2 or 3V CLINICAL HISTORY: Low back pain, left radiculopathy FINDINGS: There is a mild superior endplate compression deformity at L2 similar to August 2021. Patient has had previous laminectomies at L3 and L4. There is also been fusion with transpedicular screws and rods. There is severe diffuse degenerative disc disease. There is a grade 1 anterolisthesis of L4 and L5 similar to prior study there is osteoarthritis in the facets throughout. Patient has cholelithiasis IMPRESSION: Stable L2 compression fracture Previous laminectomy and fusion at L3-4 Severe diffuse degenerative disc disease and facet osteoarthropathy
== END 2021-09-17 09:49 | disposition home or self-care (01) ==
LOC: JP.ED 06:31
DX: M51.16 Intervertebral disc disorders with radiculopathy, lumbar region (principal); E11.9 Type 2 diabetes mellitus without complications; E78.00 Pure hypercholesterolemia, unspecified; I10 Essential (primary) hypertension; Z88.2 Allergy status to sulfonamides; Z79.899 Other long term (current) drug therapy; Z79.84 Long term (current) use of oral hypoglycemic drugs; Z86.718 Personal history of other venous thrombosis and embolism
CPT/HCPCS: 72100; 96372; 99283; A9270; J1885

== ENCOUNTER 2021-10-25 06:26 | Emergency (ER) | payer MEDICARE, BC ==
[2021-10-25 07:07] VITALS: PULSE 98
[2021-10-25] MEDS ORDERED: methylPREDNISolone Acetate 40 MG/ML SDV IM ONE (07:09)
[2021-10-25 07:36] VITALS: BP 170/95
== END 2021-10-25 07:45 | disposition home or self-care (01) ==
LOC: JP.ED 06:26
DX: M70.61 Trochanteric bursitis, right hip (principal); E78.00 Pure hypercholesterolemia, unspecified; I10 Essential (primary) hypertension; E11.9 Type 2 diabetes mellitus without complications; K21.9 Gastro-esophageal reflux disease without esophagitis; Z88.2 Allergy status to sulfonamides; Z79.899 Other long term (current) drug therapy
CPT/HCPCS: 20610; 99283; J1030

== ENCOUNTER 2022-05-29 02:48 | Emergency (ER) | payer MEDICARE, BC ==
[2022-05-29] MEDS ORDERED: Sodium Chloride 0.9% 10 ML Syringe FLUSH PRN (02:58)
[2022-05-29] MEDS ORDERED: Sodium Chloride 0.9% 500 ML IV ONE (03:50)
[2022-05-29] MEDS ORDERED: Iopamidol 755 Mg/ML 100 ML Bottle IV STA (04:01)
[2022-05-29] MEDS ORDERED: Sodium Chloride 0.9% 50 ML IV STA (04:01)
[2022-05-29 06:05] VITALS: BP 155/86; PULSE 85
== END 2022-05-29 06:05 | disposition home or self-care (01) ==
LOC: JP.ED 02:48
DX: R00.0 Tachycardia, unspecified (principal); E11.65 Type 2 diabetes mellitus with hyperglycemia; E11.22 Type 2 diabetes mellitus with diabetic chronic kidney disease; I12.9 Hypertensive chronic kidney disease with stage 1 through stage 4 chronic kidney disease, or unspecified chronic kidney disease; N18.31 Chronic kidney disease, stage 3a; E86.0 Dehydration; I26.99 Other pulmonary embolism without acute cor pulmonale; K21.9 Gastro-esophageal reflux disease without esophagitis; E78.00 Pure hypercholesterolemia, unspecified; Z79.899 Other long term (current) drug therapy; Z88.2 Allergy status to sulfonamides
CPT/HCPCS: 36415; 71275; 80048; 81001; 83880; 84443; 84484; 85025; 85379; 93005; 96360; 99285; J3490; J7040; Q9967

== ENCOUNTER → 2022-07-15 | Day surgery (SDC) | payer MEDICARE, BC | LOC: JP.SDS 06:00 | PROVIDERS: ATTEND Ophthalmology | DX: E11.36 Type 2 diabetes mellitus with diabetic cataract (principal); H26.9 Unspecified cataract; H54.7 Unspecified visual loss; Z79.899 Other long term (current) drug therapy; Z88.2 Allergy status to sulfonamides ==

== ENCOUNTER 2022-10-04 09:40 | Emergency (ER) | payer MEDICARE, BC ==
[2022-10-04] MEDS ORDERED: Adenosine 6 MG/2 ML SDV IVPUSH ONE ×2 (10:02)
[2022-10-04] MEDS ORDERED: Ondansetron 4 MG/2 ML SDV IVPUSH ONE (10:10)
[2022-10-04] MEDS ORDERED: Sodium Chloride 0.9% 1,000 ML IV SCH (10:15)
[2022-10-04] MEDS ORDERED: Metoprolol Tartrate 5 MG/5 ML SDV IVPUSH ONE (10:18)
[2022-10-04] MEDS ORDERED: Metoprolol Tartrate 25 MG Tab PO ONE (10:36)
[2022-10-04 10:37] LABS: ESTIMATED GFR 50 mL/min (>60); TROPONIN I HIGH SENSITIVITY 13.8 pg/mL (<=60.3)
[2022-10-04 10:56] VITALS: BP 134/68; PULSE 92
== END 2022-10-04 11:45 | disposition home or self-care (01) ==
LOC: JP.ED 09:40
DX: I47.1 Supraventricular tachycardia (principal); E78.00 Pure hypercholesterolemia, unspecified; I10 Essential (primary) hypertension; E11.9 Type 2 diabetes mellitus without complications; Z88.2 Allergy status to sulfonamides; Z79.899 Other long term (current) drug therapy
CPT/HCPCS: 36415; 80053; 84443; 84484; 85025; 93005; 96361; 96374; 96375; 99285; A9270; J0153; J2405; J7030

== ENCOUNTER 2022-10-16 10:28 | Emergency (ER) | payer MEDICARE, BC ==
[2022-10-16] MEDS ORDERED: Metoprolol Tartrate 5 MG/5 ML SDV IVPUSH ONE (10:51)
[2022-10-16] MEDS ORDERED: Sodium Chloride 0.9% 1,000 ML IV SCH (11:00)
[2022-10-16] MEDS ORDERED: Iopamidol 755 Mg/ML 100 ML Bottle IV ONE (12:33)
[2022-10-16] MEDS ORDERED: Sodium Chloride 0.9% 75 ML IV ONE (12:33)
[2022-10-16] MEDS ORDERED: Sodium Chloride 0.9% 10 ML Syringe FLUSH ONE (12:33)
[2022-10-16] MEDS ORDERED: Diltiazem 25 MG/5 ML SDV IVPUSH ONE (13:34)
[2022-10-16 14:16] VITALS: BP 111/41; PULSE 82
== END 2022-10-16 14:58 | disposition home or self-care (01) ==
LOC: JP.ED 10:28
DX: I47.1 Supraventricular tachycardia (principal); E78.00 Pure hypercholesterolemia, unspecified; I10 Essential (primary) hypertension; K21.9 Gastro-esophageal reflux disease without esophagitis; E11.9 Type 2 diabetes mellitus without complications; Z88.2 Allergy status to sulfonamides; Z79.899 Other long term (current) drug therapy
CPT/HCPCS: 36415; 71045; 71275; 80048; 83880; 84443; 84484; 85025; 85379; 93005; 93010; 96361; 96374; 96375; 99284; 99285; J3490; J7030; Q9967

== ENCOUNTER 2022-10-30 10:30 | Emergency (ER) | payer MEDICARE, BC ==
[2022-10-30 10:49] VITALS: BP 154/74; PULSE 88
[2022-10-30] MEDS ORDERED: Ketorolac 30 MG/ML SDV IM ONE (11:18)
== END 2022-10-30 11:57 | disposition home or self-care (01) ==
LOC: JP.ED 10:30
DX: M70.61 Trochanteric bursitis, right hip (principal); E78.00 Pure hypercholesterolemia, unspecified; I10 Essential (primary) hypertension; K21.9 Gastro-esophageal reflux disease without esophagitis; E11.9 Type 2 diabetes mellitus without complications; Z88.2 Allergy status to sulfonamides; Z79.4 Long term (current) use of insulin; Z79.899 Other long term (current) drug therapy
CPT/HCPCS: 99282; 99283; J1885

== ENCOUNTER 2022-11-01 07:45 | Emergency (ER) | payer MEDICARE, BC ==
[2022-11-01] MEDS ORDERED: HYDROmorphone 1 MG/ML Syringe IM ONE (08:38)
[2022-11-01 09:02] VITALS: BP 145/75; PULSE 91
== END 2022-11-01 09:10 | disposition home or self-care (01) ==
LOC: JP.ED 07:45
DX: M70.61 Trochanteric bursitis, right hip (principal); E11.9 Type 2 diabetes mellitus without complications; I10 Essential (primary) hypertension; K21.9 Gastro-esophageal reflux disease without esophagitis; E78.00 Pure hypercholesterolemia, unspecified; Z88.2 Allergy status to sulfonamides; Z79.899 Other long term (current) drug therapy
CPT/HCPCS: 96372; 99283; J1170

== ENCOUNTER 2022-11-16 13:21 | Emergency (ER) | payer MEDICARE, BC ==
[2022-11-16] MEDS ORDERED: Sodium Chloride 0.9% 10 ML Syringe FLUSH PRN (14:17)
[2022-11-16] MEDS ORDERED: Sodium Chloride 0.9% 75 ML IV SCH (14:30)
[2022-11-16] MEDS ORDERED: Iopamidol 755 Mg/ML 100 ML Bottle IV ONE (14:30)
[2022-11-16] MEDS ORDERED: Sodium Chloride 0.9% 1,000 ML IV SCH (14:30)
[2022-11-16 14:57] LABS: ESTIMATED GFR 38 mL/min (>60)
[2022-11-16 16:24] VITALS: BP 119/59; PULSE 77
== END 2022-11-16 18:36 | disposition home or self-care (01) ==
LOC: JP.ED 13:21
DX: E78.00 Pure hypercholesterolemia, unspecified (principal); I10 Essential (primary) hypertension; K21.9 Gastro-esophageal reflux disease without esophagitis; M19.90 Unspecified osteoarthritis, unspecified site; E11.9 Type 2 diabetes mellitus without complications; Z88.2 Allergy status to sulfonamides; Z79.899 Other long term (current) drug therapy; Z79.84 Long term (current) use of oral hypoglycemic drugs; R47.81 Slurred speech
CPT/HCPCS: 36415; 70450; 70496; 70498; 80053; 83605; 84484; 85025; 93005; 93010; 96360; 96361; 99283; 99284; J3490; J7030; Q9967

== ENCOUNTER 2022-12-02 14:50 | Emergency (ER) | payer MEDICARE, BC ==
[2022-12-02] MEDS ORDERED: Sodium Chloride 0.9% 1,000 ML IV STA (16:16)
[2022-12-02] MEDS ORDERED: Sodium Chloride 0.9% 10 ML Syringe FLUSH PRN (16:16)
[2022-12-02] MEDS ORDERED: Ondansetron 4 MG/2 ML SDV IVPUSH ONE (16:18)
[2022-12-02] MEDS ORDERED: fentaNYL 100 MCG/2 ML SDV IVPUSH ONE (16:18)
[2022-12-02] MEDS ORDERED: Iopamidol 612 MG/ML 100 ML Bottle IV ONE (16:23)
[2022-12-02] MEDS ORDERED: Sodium Chloride 0.9% 10 ML Syringe FLUSH ONE (16:23)
[2022-12-02] MEDS ORDERED: Sodium Chloride 0.9% 50 ML IV ONE (16:23)
[2022-12-02 16:53] LABS: ESTIMATED GFR 56 mL/min (>60); TROPONIN I HIGH SENSITIVITY 9.5 pg/mL (<=60.3)
[2022-12-02 17:25] VITALS: BP 143/64; PULSE 70
[2022-12-02] MEDS ORDERED: cefTRIAXone 1 GM, Lidocaine 1% 2.1 ML IM ONE ×2 (19:10)
== END 2022-12-02 19:50 | disposition home or self-care (01) ==
LOC: JP.ED 14:50
DX: R10.9 Unspecified abdominal pain (principal); I10 Essential (primary) hypertension; K21.9 Gastro-esophageal reflux disease without esophagitis; M19.90 Unspecified osteoarthritis, unspecified site; E11.9 Type 2 diabetes mellitus without complications; Z88.2 Allergy status to sulfonamides; Z79.899 Other long term (current) drug therapy; Z79.4 Long term (current) use of insulin; Z20.822 Contact with and (suspected) exposure to COVID-19
CPT/HCPCS: 36415; 74177; 80053; 81001; 83605; 83690; 84484; 85025; 96361; 96372; 96374; 96375; 99284; J0696; J2405; J3010; J3490; J7030; Q9967; U0002

== ENCOUNTER 2023-02-11 07:41 | Day surgery (SDC) | payer MEDICARE, BC ==
[2023-02-11] MEDS ORDERED: Dextrose 5%-Lactated Ringers 1,000 ML IV SCH (08:30)
[2023-02-11] MEDS ORDERED: Propofol 200 MG/20 ML SDV ONE (10:34)
[2023-02-11] MEDS ORDERED: Pantoprazole 40 MG Vial IVPUSH ONE (10:58)
[2023-02-11 12:00] VITALS: BP 151/74; PULSE 87
== END 2023-02-11 12:05 | disposition home or self-care (01) ==
LOC: JP.SDS 07:41
PROVIDERS: ATTEND Surgery
DX: K92.1 Melena (principal); K29.80 Duodenitis without bleeding; K44.9 Diaphragmatic hernia without obstruction or gangrene; K21.9 Gastro-esophageal reflux disease without esophagitis; I12.9 Hypertensive chronic kidney disease with stage 1 through stage 4 chronic kidney disease, or unspecified chronic kidney disease; E11.22 Type 2 diabetes mellitus with diabetic chronic kidney disease; N18.9 Chronic kidney disease, unspecified; E03.9 Hypothyroidism, unspecified; E78.5 Hyperlipidemia, unspecified; Z88.2 Allergy status to sulfonamides; Z79.4 Long term (current) use of insulin; Z79.899 Other long term (current) drug therapy; Z79.890 Hormone replacement therapy; Z86.711 Personal history of pulmonary embolism; Z86.718 Personal history of other venous thrombosis and embolism
CPT/HCPCS: 43239; 87081; C9113; J2704; J7121

== ENCOUNTER 2023-02-27 17:00 | Emergency (ER) | payer MEDICARE, BC ==
[2023-02-27] MEDS ORDERED: Adenosine 6 MG/2 ML SDV IVPUSH ONE ×2 (17:12→18:10)
[2023-02-27] MEDS ORDERED: Adenosine 6 MG/2 ML SDV ONE (17:19)
[2023-02-27 17:21] LABS: BASOPHILS ABSOLUTE AUTO 0.06 K/uL (0.00-0.10); BASOPHILS PERCENT AUTO 0.8 % (0.1-1.3); EOSINOPHILS ABSOLUTE AUTO 0.12 K/uL (0.00-0.40); EOSINOPHILS PERCENT AUTO 1.6 % (0.0-5.4); HEMATOCRIT 41.8 % (34.3-46.0); HEMOGLOBIN 13.6 g/dL (11.2-15.5); IMMATURE GRAN ABSOLUTE AUTO 0.04 K/uL (0.00-0.23); IMMATURE GRAN PERCENT AUTO 0.5 % (0.0-0.7); LYMPHOCYTES ABSOLUTE AUTO 1.45 K/uL (0.8-3.3); LYMPHOCYTES PERCENT AUTO 19.9 % (11.4-47.7); MEAN CORPUSCULAR HEMOGLOBIN 30.8 pg (31.6-35.5); MEAN CORPUSCULAR HGB CONC 32.5 g/dL (31.6-35.5); MEAN CORPUSCULAR VOLUME 94.6 fL (81.4-99.0); MONOCYTES PERCENT AUTO 8.2 % (3.3-12.6); NEUTROPHILS ABSOLUTE AUTO 5.03 K/uL (1.0-7.6); PLATELET COUNT,PLT 307 K/uL (130-375); RED BLOOD CELL COUNT 4.42 M/uL (3.77-5.24); WHITE BLOOD CELL COUNT,WBC 7.3 K/uL (3.2-11.0)
[2023-02-27 17:47] LABS: A/G RATIO 0.7 (1.2-2.2); ALANINE AMINOTRANSFERASE,ALT 19 U/L (12-78); ALBUMIN 3.2 g/dL (3.4-5.0); ALKALINE PHOSPHATASE 64 U/L (46-116); ASPARTATE AMNIOTRANSFERASE,AST 29 U/L (15-37); BILIRUBIN TOTAL 0.5 mg/dL (0.2-1.0); BLOOD UREA NITROGEN,BUN 13 mg/dL (7-18); CALCIUM 9.4 mg/dL (8.5-10.1); CARBON DIOXIDE,CO2 29 mmol/L (21-32); CHLORIDE,CL 102 mmol/L (100-108); ESTIMATED GFR 56 mL/min (>60); GLUCOSE RANDOM 191 mg/dL (74-106); POTASSIUM,K 4.5 mmol/L (3.6-5.2); PROTEIN TOTAL,TP 7.6 g/dL (6.4-8.2); SODIUM,NA 138 mmol/L (140-148)
[2023-02-27 17:48] LABS: ANION GAP 11.5 mmol/L (5.0-14.0)
[2023-02-27 17:50] LABS: TSH ULTRASENSITIVE 2.353 uIU/mL (0.358-3.740)
[2023-02-27] MEDS ORDERED: Furosemide 40 MG/4 ML VIAL IVPUSH ONE (18:16)
[2023-02-27] MEDS ORDERED: Iopamidol 755 Mg/ML 100 ML Bottle IV ONE (19:42)
[2023-02-27] MEDS ORDERED: Sodium Chloride 0.9% 10 ML Syringe FLUSH ONE (19:42)
[2023-02-27] MEDS ORDERED: Sodium Chloride 0.9% 75 ML IV ONE (19:42)
[2023-02-27] MEDS ORDERED: Magnesium Sulfate/Water 2 GM in Premix Bag 1 BAG IV STA (21:02)
[2023-02-27] MEDS ORDERED: Magnesium Oxide 400 MG Tab PO STA (21:03)
[2023-02-27 22:16] VITALS: BP 172/74; PULSE 85
== END 2023-02-27 23:31 | disposition home or self-care (01) ==
LOC: JP.ED 17:00
DX: E83.42 Hypomagnesemia (principal); R00.2 Palpitations; R00.0 Tachycardia, unspecified; E87.70 Fluid overload, unspecified; I10 Essential (primary) hypertension; K21.9 Gastro-esophageal reflux disease without esophagitis; M19.90 Unspecified osteoarthritis, unspecified site; E11.9 Type 2 diabetes mellitus without complications; Z88.2 Allergy status to sulfonamides; Z79.899 Other long term (current) drug therapy; Z79.4 Long term (current) use of insulin
CPT/HCPCS: 36415; 71045; 71275; 80053; 83735; 83880; 84443; 84484; 85025; 85379; 93005; 96365; 96366; 96375; 99285; A9270; J0153; J1940; J3475; J3490; Q9967

== ENCOUNTER 2023-03-05 16:50 | Emergency (ER) | payer MEDICARE, BC ==
[2023-03-05] MEDS ORDERED: Ondansetron 4 MG/2 ML SDV IVPUSH ONE (18:20)
[2023-03-05 18:29] LABS: BASOPHILS PERCENT AUTO 0.4 % (0.1-1.3); EOSINOPHILS ABSOLUTE AUTO 0.13 K/uL (0.00-0.40); EOSINOPHILS PERCENT AUTO 2.5 % (0.0-5.4); HEMATOCRIT 41.7 % (34.3-46.0); HEMOGLOBIN 13.8 g/dL (11.2-15.5); IMMATURE GRAN ABSOLUTE AUTO 0.06 K/uL (0.00-0.23); IMMATURE GRAN PERCENT AUTO 1.2 % (0.0-0.7); LYMPHOCYTES ABSOLUTE AUTO 0.35 K/uL (0.8-3.3); LYMPHOCYTES PERCENT AUTO 6.8 % (11.4-47.7); MEAN CORPUSCULAR HEMOGLOBIN 30.7 pg (31.6-35.5); MEAN CORPUSCULAR HGB CONC 33.1 g/dL (31.6-35.5); MEAN CORPUSCULAR VOLUME 92.9 fL (81.4-99.0); MONOCYTES ABSOLUTE AUTO 0.04 K/uL (0.20-0.90); MONOCYTES PERCENT AUTO 0.8 % (3.3-12.6); NEUTROPHILS ABSOLUTE AUTO 4.54 K/uL (1.0-7.6); NEUTROPHILS PERCENT AUTO 88.3 % (40.0-78.1); PLATELET COUNT,PLT 218 K/uL (130-375); RED BLOOD CELL COUNT 4.49 M/uL (3.77-5.24); WHITE BLOOD CELL COUNT,WBC 5.1 K/uL (3.2-11.0)
[2023-03-05 18:30] LABS: BASOPHILS ABSOLUTE AUTO 0.02 K/uL (0.00-0.10)
[2023-03-05] MEDS ORDERED: Sodium Chloride 0.9% 1,000 ML IV SCH (18:30)
[2023-03-05 18:51] LABS: A/G RATIO 0.8 (1.2-2.2); ALANINE AMINOTRANSFERASE,ALT 17 U/L (12-78); ALBUMIN 3.4 g/dL (3.4-5.0); ALKALINE PHOSPHATASE 79 U/L (46-116); ASPARTATE AMNIOTRANSFERASE,AST 20 U/L (15-37); BILIRUBIN TOTAL 1.3 mg/dL (0.2-1.0); BLOOD UREA NITROGEN,BUN 12 mg/dL (7-18); CALCIUM 9.2 mg/dL (8.5-10.1); CARBON DIOXIDE,CO2 29 mmol/L (21-32); CHLORIDE,CL 101 mmol/L (100-108); CREATININE 1.1 mg/dL (0.6-1.0); EST CRCL DRUG DOSING (CG) 36.28 mL/min; ESTIMATED GFR 50 mL/min (>60); GLUCOSE RANDOM 121 mg/dL (74-106); LIPASE 81 U/L (73-393); POTASSIUM,K 3.4 mmol/L (3.6-5.2); PROTEIN TOTAL,TP 7.9 g/dL (6.4-8.2); SODIUM,NA 140 mmol/L (140-148)
[2023-03-05 18:52] LABS: ANION GAP 13.4 mmol/L (5.0-14.0)
[2023-03-05] MEDS ORDERED: cefTRIAXone 1 GM in Sodium Chloride 0.9% 50 ML IV ONE (19:19)
[2023-03-05 19:31] LABS: APPEARANCE,URINE CLOUDY (CLEAR); BILIRUBIN,URINE NEGATIVE (NEGATIVE); COLOR,URINE YELLOW (YELLOW); GLUCOSE,URINE NEGATIVE (NEGATIVE); KETONES,URINE NEGATIVE (NEGATIVE); LEUKOCYTE ESTERASE,URINE SMALL (NEGATIVE); NITRITE,URINE POSITIVE (NEGATIVE); OCCULT BLOOD,URINE LARGE (NEGATIVE); PH,URINE 5.5 (5.0-8.0); PROTEIN,URINE >=300 mg/dL (NEGATIVE); UROBILINOGEN,URINE 0.2 EU/dL (0.2-1.0)
[2023-03-05 19:33] VITALS: BP 179/83; PULSE 121
[2023-03-05 19:39] LABS: WBC,URINE 40-50 (0-5)
[2023-03-05 19:40] LABS: AMORPHOUS SEDIMENT,URINE NOT SEEN; BACTERIA,URINE MANY; EPITHELIAL CELLS,URINE FEW; MUCUS,URINE FEW; RBC,URINE SEMI-PACKED (0-5)
== END 2023-03-05 20:39 | disposition home or self-care (01) ==
LOC: JP.ED 16:50
DX: N39.0 Urinary tract infection, site not specified (principal); E78.00 Pure hypercholesterolemia, unspecified; I10 Essential (primary) hypertension; E11.9 Type 2 diabetes mellitus without complications; K21.9 Gastro-esophageal reflux disease without esophagitis; Z88.2 Allergy status to sulfonamides; Z79.4 Long term (current) use of insulin; Z79.899 Other long term (current) drug therapy
CPT/HCPCS: 36415; 76705; 80053; 81001; 83605; 83690; 85025; 87040; 87077; 87086; 87088; 87186; 96361; 96365; 96375; 99284; J0696; J2405; J3490; J7030

== ENCOUNTER 2023-03-06 04:28 | Emergency (ER) | payer MEDICARE, BC ==
[2023-03-06] MEDS ORDERED: Sodium Chloride 0.9% 1,000 ML IV SCH (04:30)
[2023-03-06 04:40] LABS: HEMATOCRIT 41.1 % (34.3-46.0); HEMOGLOBIN 13.5 g/dL (11.2-15.5); MEAN CORPUSCULAR HEMOGLOBIN 30.5 pg (31.6-35.5); MEAN CORPUSCULAR HGB CONC 32.8 g/dL (31.6-35.5); MEAN CORPUSCULAR VOLUME 92.8 fL (81.4-99.0); PLATELET COUNT,PLT 176 K/uL (130-375); RED BLOOD CELL COUNT 4.43 M/uL (3.77-5.24); WHITE BLOOD CELL COUNT,WBC 18.1 K/uL (3.2-11.0)
[2023-03-06] MEDS ORDERED: Meropenem 1 GM in Sodium Chloride 0.9% 100 ML IV ONE (04:47)
[2023-03-06 04:52] LABS: CALCIUM 8.9 mg/dL (8.5-10.1); EST CRCL DRUG DOSING (CG) 16.86 mL/min; POTASSIUM,K 3.2 mmol/L (3.6-5.2)
[2023-03-06 04:55] LABS: ANION GAP 16.2 mmol/L (5.0-14.0)
[2023-03-06 04:56] LABS: BAND ABSOLUTE MAN 2.53 K/uL; BAND PERCENT MAN 14 % (5-11); LYMPHOCYTES ABSOLUTE MAN 0.36 K/uL (0.8-3.3); LYMPHOCYTES PERCENT MAN 2 % (24-44); MONOCYTES ABSOLUTE MAN 0.72 K/uL (0.20-0.90); MONOCYTES PERCENT MAN 4 % (2-6); NEUTROPHILS ABSOLUTE MAN 14.48 K/uL (1.0-7.6); SEG NEUTROPHILS PERCENT MAN 80 % (36-66)
[2023-03-06 05:29] VITALS: BP 87/31; PULSE 110
[2023-03-06] MEDS ORDERED: Norepinephrine Bit/D5W Premix 4 MG in Premix Bag 1 BAG IV SCH (05:30)
== END 2023-03-06 06:22 | disposition other institution (70) ==
LOC: JP.ED 04:28
DX: A41.9 Sepsis, unspecified organism (principal); N13.2 Hydronephrosis with renal and ureteral calculous obstruction; N39.0 Urinary tract infection, site not specified; E78.00 Pure hypercholesterolemia, unspecified; I10 Essential (primary) hypertension; K21.9 Gastro-esophageal reflux disease without esophagitis; E11.9 Type 2 diabetes mellitus without complications; Z88.2 Allergy status to sulfonamides; Z79.899 Other long term (current) drug therapy; Z79.4 Long term (current) use of insulin
CPT/HCPCS: 36415; 74176; 80048; 83605; 85025; 96365; 96367; 99285; J2185; J3490; J7030

== ENCOUNTER 2023-04-04 04:17 | Emergency (ER) | payer MEDICARE, BC ==
[2023-04-04 04:53] LABS: BASOPHILS ABSOLUTE AUTO 0.07 K/uL (0.00-0.10); BASOPHILS PERCENT AUTO 0.8 % (0.1-1.3); EOSINOPHILS ABSOLUTE AUTO 0.52 K/uL (0.00-0.40); EOSINOPHILS PERCENT AUTO 6.1 % (0.0-5.4); HEMATOCRIT 36.6 % (34.3-46.0); HEMOGLOBIN 11.9 g/dL (11.2-15.5); IMMATURE GRAN ABSOLUTE AUTO 0.04 K/uL (0.00-0.23); IMMATURE GRAN PERCENT AUTO 0.5 % (0.0-0.7); LYMPHOCYTES ABSOLUTE AUTO 1.78 K/uL (0.8-3.3); MEAN CORPUSCULAR HGB CONC 32.5 g/dL (31.6-35.5); MEAN CORPUSCULAR VOLUME 89.3 fL (81.4-99.0); MONOCYTES ABSOLUTE AUTO 0.77 K/uL (0.20-0.90); MONOCYTES PERCENT AUTO 9.1 % (3.3-12.6); NEUTROPHILS ABSOLUTE AUTO 5.29 K/uL (1.0-7.6); NEUTROPHILS PERCENT AUTO 62.5 % (40.0-78.1); PLATELET COUNT,PLT 303 K/uL (130-375); WHITE BLOOD CELL COUNT,WBC 8.5 K/uL (3.2-11.0)
[2023-04-04 05:06] LABS: BLOOD UREA NITROGEN,BUN 5 mg/dL (7-18); CALCIUM 8.5 mg/dL (8.5-10.1); CARBON DIOXIDE,CO2 31 mmol/L (21-32); CHLORIDE,CL 101 mmol/L (100-108); CREATININE 0.8 mg/dL (0.6-1.0); ESTIMATED GFR 73 mL/min (>60); GLUCOSE RANDOM 126 mg/dL (74-106); SODIUM,NA 139 mmol/L (140-148)
[2023-04-04 05:09] LABS: ANION GAP 9.4 mmol/L (5.0-14.0); POTASSIUM,K 2.4 mmol/L (3.6-5.2)
[2023-04-04] MEDS ORDERED: Sodium Chloride 0.9% 10 ML Syringe FLUSH PRN (05:11)
[2023-04-04] MEDS ORDERED: Potassium Chloride 20 MEQ Tab.ER PO ONE (05:11)
[2023-04-04] MEDS ORDERED: Potassium Chloride 10 MEQ in Premix Bag 1 BAG IV ONE ×2 (05:11→05:14)
[2023-04-04 05:27] LABS: C-REACTIVE PROTEIN 1.07 mg/dL (0.0-0.3); TROPONIN I HIGH SENSITIVITY 7.8 pg/mL (<=60.3); TSH ULTRASENSITIVE 3.678 uIU/mL (0.358-3.740)
[2023-04-04 06:53] VITALS: PULSE 85
[2023-04-04 06:54] VITALS: BP 186/87
== END 2023-04-04 08:07 | disposition home or self-care (01) ==
LOC: JP.ED 04:17
DX: E87.6 Hypokalemia (principal); I10 Essential (primary) hypertension; K21.9 Gastro-esophageal reflux disease without esophagitis; E11.9 Type 2 diabetes mellitus without complications; Z88.1 Allergy status to other antibiotic agents; Z79.4 Long term (current) use of insulin; Z79.899 Other long term (current) drug therapy
CPT/HCPCS: 36415; 71045; 80048; 84443; 84484; 85025; 86140; 93005; 96365; 96366; 99284; A9270; J3480

== ENCOUNTER 2023-04-11 04:08 | Emergency (ER) | payer MEDICARE, BC ==
[2023-04-11] MEDS ORDERED: Sodium Chloride 0.9% 10 ML Syringe FLUSH PRN (04:14)
[2023-04-11] MEDS ORDERED: Sodium Chloride 0.9% 1,000 ML IV SCH (04:15)
[2023-04-11] MEDS ORDERED: Adenosine 6 MG/2 ML SDV IVPUSH ONE ×2 (04:15)
[2023-04-11] MEDS ORDERED: Adenosine 6 MG/2 ML SDV ONE (04:17)
[2023-04-11] MEDS ORDERED: Diltiazem 25 MG/5 ML SDV IVPUSH ONE (04:23)
[2023-04-11 04:24] LABS: BASOPHILS ABSOLUTE AUTO 0.09 K/uL (0.00-0.10); BASOPHILS PERCENT AUTO 1.2 % (0.1-1.3); EOSINOPHILS ABSOLUTE AUTO 0.54 K/uL (0.00-0.40); EOSINOPHILS PERCENT AUTO 7.2 % (0.0-5.4); HEMATOCRIT 36.3 % (34.3-46.0); HEMOGLOBIN 11.8 g/dL (11.2-15.5); IMMATURE GRAN PERCENT AUTO 0.3 % (0.0-0.7); LYMPHOCYTES ABSOLUTE AUTO 1.95 K/uL (0.8-3.3); LYMPHOCYTES PERCENT AUTO 26.2 % (11.4-47.7); MEAN CORPUSCULAR HEMOGLOBIN 29.4 pg (31.6-35.5); MEAN CORPUSCULAR HGB CONC 32.5 g/dL (31.6-35.5); MEAN CORPUSCULAR VOLUME 90.3 fL (81.4-99.0); MONOCYTES ABSOLUTE AUTO 0.69 K/uL (0.20-0.90); MONOCYTES PERCENT AUTO 9.3 % (3.3-12.6); NEUTROPHILS ABSOLUTE AUTO 4.16 K/uL (1.0-7.6); NEUTROPHILS PERCENT AUTO 55.8 % (40.0-78.1); PLATELET COUNT,PLT 279 K/uL (130-375); RED BLOOD CELL COUNT 4.02 M/uL (3.77-5.24); WHITE BLOOD CELL COUNT,WBC 7.5 K/uL (3.2-11.0)
[2023-04-11 04:25] LABS: IMMATURE GRAN ABSOLUTE AUTO 0.02 K/uL (0.00-0.23)
[2023-04-11 04:43] LABS: A/G RATIO 0.6 (1.2-2.2); ALANINE AMINOTRANSFERASE,ALT 19 U/L (12-78); ALBUMIN 2.7 g/dL (3.4-5.0); ALKALINE PHOSPHATASE 73 U/L (46-116); ASPARTATE AMNIOTRANSFERASE,AST 22 U/L (15-37); BILIRUBIN TOTAL 0.3 mg/dL (0.2-1.0); BLOOD UREA NITROGEN,BUN 9 mg/dL (7-18); CALCIUM 8.9 mg/dL (8.5-10.1); CARBON DIOXIDE,CO2 23 mmol/L (21-32); CHLORIDE,CL 103 mmol/L (100-108); ESTIMATED GFR 56 mL/min (>60); GLUCOSE RANDOM 212 mg/dL (74-106); POTASSIUM,K 4.4 mmol/L (3.6-5.2); PROTEIN TOTAL,TP 7.3 g/dL (6.4-8.2); SODIUM,NA 136 mmol/L (140-148); TROPONIN I HIGH SENSITIVITY 6.9 pg/mL (<=60.3)
[2023-04-11 05:01] LABS: ANION GAP 14.4 mmol/L (5.0-14.0)
[2023-04-11] MEDS ORDERED: Metoprolol Tartrate 5 MG/5 ML SDV IVPUSH ONE ×2 (05:05→06:07)
[2023-04-11] MEDS ORDERED: Amiodarone 150 MG/3 ML SDV IVPUSH ONE (06:49)
[2023-04-11] MEDS ORDERED: Ondansetron 4 MG/2 ML SDV IVPUSH ONE (07:15)
[2023-04-11] MEDS ORDERED: Magnesium Sulfate/Water 2 GM in Premix Bag 1 BAG IV ONE (07:57)
[2023-04-11 09:17] VITALS: BP 131/63; PULSE 77
== END 2023-04-11 10:38 | disposition home or self-care (01) ==
LOC: JP.ED 04:08
DX: E83.42 Hypomagnesemia (principal); E11.22 Type 2 diabetes mellitus with diabetic chronic kidney disease; I12.9 Hypertensive chronic kidney disease with stage 1 through stage 4 chronic kidney disease, or unspecified chronic kidney disease; N18.31 Chronic kidney disease, stage 3a; R00.0 Tachycardia, unspecified; E03.9 Hypothyroidism, unspecified; E11.65 Type 2 diabetes mellitus with hyperglycemia; K21.9 Gastro-esophageal reflux disease without esophagitis; E78.00 Pure hypercholesterolemia, unspecified; Z88.2 Allergy status to sulfonamides; Z79.899 Other long term (current) drug therapy; Z79.84 Long term (current) use of oral hypoglycemic drugs
CPT/HCPCS: 36415; 80053; 83735; 84484; 85025; 87040; 96361; 96365; 96366; 96375; 96376; 99284; 99285; J0153; J0282; J2405; J3475; J3490; J7030

== ENCOUNTER 2023-04-18 02:25 | Emergency (ER) | payer MEDICARE, BC ==
[2023-04-18] MEDS ORDERED: Adenosine 6 MG/2 ML SDV IVPUSH ONE ×2 (02:45→02:58)
[2023-04-18 02:53] LABS: BASOPHILS ABSOLUTE AUTO 0.08 K/uL (0.00-0.10); BASOPHILS PERCENT AUTO 0.8 % (0.1-1.3); EOSINOPHILS ABSOLUTE AUTO 0.61 K/uL (0.00-0.40); EOSINOPHILS PERCENT AUTO 6.3 % (0.0-5.4); HEMATOCRIT 39.7 % (34.3-46.0); HEMOGLOBIN 12.8 g/dL (11.2-15.5); IMMATURE GRAN ABSOLUTE AUTO 0.05 K/uL (0.00-0.23); IMMATURE GRAN PERCENT AUTO 0.5 % (0.0-0.7); LYMPHOCYTES ABSOLUTE AUTO 2.38 K/uL (0.8-3.3); LYMPHOCYTES PERCENT AUTO 24.6 % (11.4-47.7); MEAN CORPUSCULAR HEMOGLOBIN 29.3 pg (31.6-35.5); MEAN CORPUSCULAR HGB CONC 32.2 g/dL (31.6-35.5); MEAN CORPUSCULAR VOLUME 90.8 fL (81.4-99.0); MONOCYTES PERCENT AUTO 9.3 % (3.3-12.6); NEUTROPHILS ABSOLUTE AUTO 5.66 K/uL (1.0-7.6); NEUTROPHILS PERCENT AUTO 58.5 % (40.0-78.1); PLATELET COUNT,PLT 336 K/uL (130-375); RED BLOOD CELL COUNT 4.37 M/uL (3.77-5.24); WHITE BLOOD CELL COUNT,WBC 9.7 K/uL (3.2-11.0)
[2023-04-18 03:02] LABS: BLOOD UREA NITROGEN,BUN 17 mg/dL (7-18); CALCIUM 9.2 mg/dL (8.5-10.1); CARBON DIOXIDE,CO2 25 mmol/L (21-32); CHLORIDE,CL 101 mmol/L (100-108); CREATININE 1.1 mg/dL (0.6-1.0); ESTIMATED GFR 50 mL/min (>60); GLUCOSE RANDOM 268 mg/dL (74-106); POTASSIUM,K 4.3 mmol/L (3.6-5.2); SODIUM,NA 137 mmol/L (140-148)
[2023-04-18 03:09] LABS: ANION GAP 15.3 mmol/L (5.0-14.0)
[2023-04-18] MEDS ORDERED: Magnesium Oxide 400 MG Tab PO ONE (03:36)
[2023-04-18 03:46] VITALS: BP 111/69; PULSE 100
== END 2023-04-18 04:05 | disposition home or self-care (01) ==
LOC: JP.ED 02:25
DX: I47.1 Supraventricular tachycardia (principal); E83.42 Hypomagnesemia; I10 Essential (primary) hypertension; K21.9 Gastro-esophageal reflux disease without esophagitis; E11.9 Type 2 diabetes mellitus without complications; Z88.2 Allergy status to sulfonamides; Z79.899 Other long term (current) drug therapy; Z79.4 Long term (current) use of insulin
CPT/HCPCS: 36415; 80048; 83735; 85025; 93005; 96374; 99285; A9270; J0153

== ENCOUNTER 2023-09-26 03:38 | Emergency (ER) | payer MEDICARE, BC ==
[2023-09-26] MEDS ORDERED: Sodium Chloride 0.9% 10 ML Syringe FLUSH PRN (03:40)
[2023-09-26 03:54] LABS: BASOPHILS ABSOLUTE AUTO 0.08 K/uL (0.00-0.10); BASOPHILS PERCENT AUTO 1.2 % (0.1-1.3); EOSINOPHILS ABSOLUTE AUTO 0.22 K/uL (0.00-0.40); EOSINOPHILS PERCENT AUTO 3.4 % (0.0-5.4); HEMATOCRIT 37.7 % (34.3-46.0); HEMOGLOBIN 12.7 g/dL (11.2-15.5); IMMATURE GRAN ABSOLUTE AUTO 0.03 K/uL (0.00-0.23); IMMATURE GRAN PERCENT AUTO 0.5 % (0.0-0.7); LYMPHOCYTES ABSOLUTE AUTO 2.03 K/uL (0.8-3.3); LYMPHOCYTES PERCENT AUTO 31.6 % (11.4-47.7); MEAN CORPUSCULAR HEMOGLOBIN 31.1 pg (31.6-35.5); MEAN CORPUSCULAR HGB CONC 33.7 g/dL (31.6-35.5); MEAN CORPUSCULAR VOLUME 92.2 fL (81.4-99.0); MONOCYTES ABSOLUTE AUTO 0.74 K/uL (0.20-0.90); MONOCYTES PERCENT AUTO 11.5 % (3.3-12.6); NEUTROPHILS ABSOLUTE AUTO 3.33 K/uL (1.0-7.6); NEUTROPHILS PERCENT AUTO 51.8 % (40.0-78.1); PLATELET COUNT,PLT 231 K/uL (130-375); RED BLOOD CELL COUNT 4.09 M/uL (3.77-5.24); WHITE BLOOD CELL COUNT,WBC 6.4 K/uL (3.2-11.0)
[2023-09-26] MEDS ORDERED: Ketamine 500 MG/5 ML MDV IV ONE (04:17)
[2023-09-26 04:18] LABS: A/G RATIO 0.9 (1.2-2.2); ALANINE AMINOTRANSFERASE,ALT 38 U/L (12-78); ALBUMIN 3.7 g/dL (3.4-5.0); ALKALINE PHOSPHATASE 92 U/L (46-116); ASPARTATE AMNIOTRANSFERASE,AST 25 U/L (15-37); BILIRUBIN TOTAL 0.2 mg/dL (0.2-1.0); BLOOD UREA NITROGEN,BUN 26 mg/dL (7-18); CALCIUM 9.1 mg/dL (8.5-10.1); CARBON DIOXIDE,CO2 23 mmol/L (21-32); CHLORIDE,CL 103 mmol/L (100-108); CREATININE 1.5 mg/dL (0.6-1.0); ESTIMATED GFR 34 mL/min (>60); GLUCOSE RANDOM 230 mg/dL (74-106); POTASSIUM,K 4.9 mmol/L (3.6-5.2); SODIUM,NA 136 mmol/L (140-148); TROPONIN I HIGH SENSITIVITY 4.1 pg/mL (<=60.3)
[2023-09-26 04:29] LABS: ANION GAP 14.9 mmol/L (5.0-14.0)
[2023-09-26 05:08] LABS: CORONAVIRUS COVID-19 NAA NEGATIVE (NEGATIVE); INFLUENZA A NAA NEGATIVE (NEGATIVE); INFLUENZA B NAA NEGATIVE (NEGATIVE); RESPIRATORY SYNCYTIAL VIR NAA NEGATIVE (NEGATIVE)
[2023-09-26] MEDS ORDERED: Dexamethasone 4 MG/ML SDV IVPUSH ONE (05:13)
[2023-09-26 05:41] VITALS: BP 141/80; PULSE 107
== END 2023-09-26 05:57 | disposition home or self-care (01) ==
LOC: JP.ED 03:38
DX: B33.0 Epidemic myalgia (principal); R09.1 Pleurisy; Z20.822 Contact with and (suspected) exposure to COVID-19; I10 Essential (primary) hypertension; K21.9 Gastro-esophageal reflux disease without esophagitis; E11.9 Type 2 diabetes mellitus without complications; Z79.4 Long term (current) use of insulin; Z88.2 Allergy status to sulfonamides; Z79.899 Other long term (current) drug therapy
CPT/HCPCS: 0241U; 36415; 71046; 80053; 83605; 84484; 85025; 86140; 93005; 96374; 99285; J1100; J3490